=== PATIENT | male | born 1985 | race American Indian/Alaskan Native ===

== ENCOUNTER 2021-08-17 13:04 | Emergency (ER) | payer MEDICARE ==
[2021-08-17] MEDS ORDERED: METOCLOPRAMIDE 10 MG/2 ML INJ IV ONE (14:21)
[2021-08-17] MEDS ORDERED: LACTATED RINGERS 1,000 ML IV ONE (14:21)
--- NOTE | 2021-08-17 14:57 | XRay Report ---
CHEST 1 VIEW 08/17/2021 2:29 PM INDICATION / CLINICAL INFORMATION: Nausea vomiting, hematemesis. COMPARISON: None available. FINDINGS: SUPPORT DEVICES: None. HEART / MEDIASTINUM: Moderate enlargement of the cardiac silhouette with mild central vascular conges tion. LUNGS / PLEURA: There are generalized bilateral interstitial opacities, most notable along the right lung base. No significant pleural effusion. No pneumothorax. ADDITIONAL FINDINGS: No significant additional findings. IMPRESSION: 1. Moderate cardiomegaly with central vascular congestion and probable bilateral edema/atelectasis. Signer Name: Martir Bolden MD Signed: 08/17/2021 2:52 PM Workstation Name: [id number]
[2021-08-17] MEDS: diphenhydrAMINE 50 MG/ML VIAL IV ONE (15:01)
[2021-08-17] MEDS: HYDROmorphone 1 MG/1 ML INJ IV ONE ×2 (15:01→16:27)
[2021-08-17] MEDS: PANTOPRAZOLE 40 MG INJ IV ONE (15:01)
[2021-08-17] MEDS ORDERED: SPIRONOLACTONE 25 MG TAB PO ONE (15:02)
--- NOTE | 2021-08-17 15:03 | Emergency Department Report ---
ED General Adult HPI - General Chief complaint: Abdominal Pain Stated complaint: ABD PAIN Time Seen by Provider: 08/17/21 13:53 Source: patient, EMS ( EMS documentation not available at time of chart dictation ), RN notes reviewed, old records reviewed Mode of arrival: Stretcher Limitations: No Limitations - History of Present Illness Initial comments: The patient was evaluated in the emergency department for symptoms described in the history of present illness. He/she was evaluated in the context of the global COVID-19 pandemic, which necessitated consideration that the patient might be at risk for infection with the virus that causes COVID-19. Institutional protocols and algorithms that pertain to the evaluation of patients at risk for COVID-19 are in a state of rapid change based on information released by regulatory bodies including the CDC and federal and state organizations. These policies and algorithms were followed during the pat ient's care in the emergency department. Please note that these policies, procedures and recommendations changed on a rapid basis. This is a 35-year-old gentleman with a history of bipolar, sickle cell, history of cholecystectomy, currently on a 1013, with congestive heart failure, ejection fraction in 2013 at this hospital, 40 to 45%, who currently lives in [place]. He is referred to the emergency room by his local psychiatric facility where he resides as a 1013 inpatient for the moment for evaluation of diffuse abdominal pain. The patient endorses nausea, vomiting and diarrhea as well as constipation. He denies sore throat. He denies dysuria. He currently makes no complaint of homicidality or suicidality. He denies loss of taste and smell. He reports yellow-brown diarrhea, and yellow clear emesis, followed by a few rounds of bloody emesis after initial emesis. His abdominal pain is diffuse, and intermittent. He also describes diffuse sickle cell pain. Current medications include Effexor, Lasix, and spironolactone. He denies specific respiratory complaints -: Gradual, days(s) Location: back, abdomen, left, right, upper extremity, lower extremity Quality: aching Consistency: constant Improves with: medication (Dilaudid and Benadryl) Worsens with: movement - Related Data Home Medications Medication Instructions Recorded Confirmed Last Taken Benztropine [Cogentin] 1 mg PO BID 10/20/13 10/20/13 10/20/13 Folic Acid [Folvite] 1 mg PO QDAY 10/20/13 10/20/13 10/20/13 Furosemide [Lasix TAB] 20 mg PO QAM 10/20/13 10/20/13 10/20/13 Hydroxyurea [Hydrea] 500 mg PO QAM 10/20/13 10/20/13 10/20/13 Ibuprofen [Motrin 400 MG tab] 400 mg PO Q6H PRN 10/20/13 10/20/13 Unknown [place] Carbonate 300 mg PO QAM 10/20/13 10/20/13 10/19/13 [place] Carbonate 600 mg PO QHS 10/20/13 10/20/13 10/19/13 Mag Hydrox/Aluminum Hyd/Simeth 30 ml PO Q2H PRN 10/20/13 10/20/13 Unknown [Maalox Advanced Suspension] Magnesium Hydroxide [Milk of 30 ml PO Q12H PRN 10/20/13 10/20/13 Unknown Magnesia] Metoprolol [Lopressor TAB] 25 mg PO BID 10/20/13 10/20/13 10/20/13 Ondansetron [Zofran TAB] 4 mg PO Q6HR PRN 10/20/13 10/20/13 Unknown Potassium Chloride [Klor-Con 10] 20 meq PO QAM 10/20/13 10/20/13 10/20/13 QUEtiapine [SEROquel] 600 mg PO QHS 10/20/13 10/20/13 10/19/13 Ziprasidone Mesylate [Geodon] 20 mg IM Q6H PRN 10/20/13 10/20/13 Unknown chlorproMAZINE (NF) [Thorazine 100 mg PO QHS 10/20/13 10/20/13 10/19/13 (Nf)] chlorproMAZINE [Thorazine] 25 mg PO QAM 10/20/13 10/20/13 10/19/13 diphenhydrAMINE [Benadryl CAP] 50 mg PO Q4H PRN 10/20/13 10/20/13 Unknown hydrOXYzine PAMOATE [Vistaril] 25 mg PO TID 10/20/13 10/20/13 10/20/13 Previous Rx's Medication Instructions Recorded Last Taken Type diphenhydrAMINE [Benadryl CAP] 25 mg PO Q6HR PRN #30 capsule 10/24/13 Unknown Rx oxyCODONE [roxiCODONE] 5 mg PO Q6H PRN #20 tablet 10/24/13 Unknown Rx Allergies Allergy/AdvReac Type Severity Reaction Status Date / Time acetaminophen [From Tylenol] Allergy Rash Verified 10/20/13 13:04 codeine Allergy Swelling Verified 10/20/13 13:04 morphine Allergy Swelling Verified 10/20/13 13:04 tramadol Allergy Swelling Verified 10/20/13 13:04 ED Review of Systems ROS: Stated complaint: ABD PAIN Other details as noted in HPI Constitutional: denies: fever Eyes: denies: eye discharge ENT: denies: congestion Respiratory: denies: cough, shortness of breath Cardiovascular: denies: chest pain Gastrointestinal: abdominal pain, nausea, vomiting, diarrhea, constipation Genitourinary: denies: dysuria Musculoskeletal: back pain, arthralgia, myalgia Neurological: denies: weakness Psychiatric: anxiety. denies: homicidal thoughts, suicidal thoughts ED Past Medical Hx - Past Medical History Previous Medical History?: Yes Hx Hypertension: Yes Hx Heart Attack/AMI: No Hx Congestive Heart Failure: Yes Hx Diabetes: No Hx Deep Vein Thrombosis: No Hx Pulmonary Embolism: No Hx GERD: No Hx Liver Disease: No Hx Renal Disease: No Hx Sickle Cell Disease: Yes Hx Arthritis: No Hx Headaches / Migraines: Yes Hx Seizures: No Hx Kidney Stones: No Hx Psychiatric Treatment: Yes (schizoaffective disorder) Hx Asthma: No Hx COPD: No Hx Tuberculosis: No Hx Dementia: No Hx HIV: No - Surgical History Hx Coronary Stent: No Hx Open Heart Surgery: No Hx Pacemaker: No Hx Internal Defibrillator: No Hx Cholecystectomy: Yes Hx Appendectomy: No Hx Breast Surgery: No - Social History Smoking Status: Current Some Day Smoker Substance Use Type: Marijuana - Medications Home Medications: Home Medications Medication Instructions Recorded Confirmed Last Taken Type Benztropine [Cogentin] 1 mg PO BID 10/20/13 10/20/13 10/20/13 History Folic Acid [Folvite] 1 mg PO QDAY 10/20/13 10/20/13 10/20/13 History Furosemide [Lasix TAB] 20 mg PO QAM 10/20/13 10/20/13 10/20/13 History Hydroxyurea [Hydrea] 500 mg PO QAM 10/20/13 10/20/13 10/20/13 History Ibuprofen [Motrin 400 MG tab] 400 mg PO Q6H PRN 10/20/13 10/20/13 Unknown History [place] Carbonate 300 mg PO QAM 10/20/13 10/20/13 10/19/13 History [place] Carbonate 600 mg PO QHS 10/20/13 10/20/13 10/19/13 History Mag Hydrox/Aluminum Hyd/Simeth 30 ml PO Q2H PRN 10/20/13 10/20/13 Unknown Hist ory [Maalox Advanced Suspension] Magnesium Hydroxide [Milk of 30 ml PO Q12H PRN 10/20/13 10/20/13 Unknown History Magnesia] Metoprolol [Lopressor TAB] 25 mg PO BID 10/20/13 10/20/13 10/20/13 History Ondansetron [Zofran TAB] 4 mg PO Q6HR PRN 10/20/13 10/20/13 Unknown History Potassium Chloride [Klor-Con 10] 20 meq PO QAM 10/20/13 10/20/13 10/20/13 History QUEtiapine [SEROquel] 600 mg PO QHS 10/20/13 10/20/13 10/19/13 History Ziprasidone Mesylate [Geodon] 20 mg IM Q6H PRN 10/20/13 10/20/13 Unknown History chlorproMAZINE (NF) [Thorazine 100 mg PO QHS 10/20/13 10/20/13 10/19/13 History (Nf)] chlorproMAZINE [Thorazine] 25 mg PO QAM 10/20/13 10/20/13 10/19/13 History diphenhydrAMINE [Benadryl CAP] 50 mg PO Q4H PRN 10/20/13 10/20/13 Unknown History hydrOXYzine PAMOATE [Vistaril] 25 mg PO TID 10/20/13 10/20/13 10/20/13 History diphenhydrAMINE [Benadryl CAP] 25 mg PO Q6HR PRN #30 capsule 10/24/13 Unknown Rx oxyCODONE [roxiCODONE] 5 mg PO Q6H PRN #20 tablet 10/24/13 Unknown Rx ED Physical Exam - General Limitations: No Limitations General appearance: alert, anxious - Head Head exam: Present: atraumatic, normocephalic - Eye Eye exam: Present: normal appearance, EOMI. Absent: nystagmus - ENT ENT exam: Present: normal exam, normal orophraynx, mucous membranes moist, normal external ear exam - Neck Neck exam: Present: normal inspection, full ROM. Absent: tenderness, meningismus - Respiratory Respiratory exam: Present: normal lung sounds bilaterally. Absent: respiratory distress, wheezes, rales, rhonchi, stridor, decreased breath sounds - Cardiovascular Cardiovascular Exam: Present: regular rate, normal rhythm, normal heart sounds. Absent: bradycardia, tachycardia, irregular rhythm, systolic murmur, diastolic murmur, rubs, gallop - GI/Abdominal GI/Abdominal exam: Present: soft, distended, tenderness. Absent: guarding, rebound, rigid, pulsatile mass - Rectal Rectal exam: Present: deferred - Extremities Exam Extremities exam: Present: normal inspection, full ROM, other (2+ pulses noted in the bilateral upper and lower extremities. Patient reports diffuse long bony tenderness. There is no redness, pus or streaking). Absent: calf tenderness - Back Exam Back exam: Present: normal inspection, muscle spasm, paraspinal tenderness. Absent: tenderness, CVA tenderness (R), CVA tenderness (L) - Neurological Exam Neurological exam: Present: alert, oriented X3, other (No facial droop. Tongue midline. Extraocular movements intact bilaterally. Facial sensation intact to light touch in V1, V2, V3 distribution bilaterally. 5 and a 5 strength in 4 extremities. Sensation intact to light touch in 4 extremities.). Absent: motor sensory deficit - Psychiatric Psychiatric exam: Present: anxious. Absent: homicidal ideation, suicidal ideation - Skin Skin exam: Present: warm, dry, intact, normal color. Absent: rash ED Course Vital Signs 08/17/21 08/17/21 08/17/21 13:10 13:49 17:01 Temperature 98.6 F 98.6 F Pulse Rate 76 76 Respiratory 18 18 Rate Blood Pressure 130/90 Blood Pressure 130/90 [Left] O2 Sat by Pulse 99 99 Oximetry O2 Sat by Pulse 99 Oximetry [ Digit-Finger] - Reevaluation(s) Reevaluation #1: 08/17/21 15:12 Differential diagnosis, including but not limited to: Constipation, obstruction, sickle cell crisis, malingering, secondary gain Assessment and plan: 35-year-old gentleman who reports diffuse abdominal pain, nausea vomiting, diarrhea, with complaints of sickle cell pain. His examination is inconsistent. When I am not in the room and not in his field of vision, he is smiling, joking, talking quite comfortably with his psychiatric liaison/observer. When I walked into the room, he distends his belly, and states that he is very pained and uncomfortable. In addition, when I examined the patient's abdomen, he appears to flex his abdominal musculature, and anteriorly distended his abdomen. When I am not in his field of vision, this resolves. He is saturating at 99/100% on room air, and he has no acute respiratory complaints, and his lung sounds are clear. Given complaint of nausea vomiting with bloody emesis, I suspect a component of Gely-Singletary tear. We will obtain appropriate laboratory studies, x-ray of the chest, and CT scan of the abdomen pelvis. We will treat his symptoms. Reassess. Denies irritative urinary symptoms at this time 08/17/21 17:02 The patient is sleeping comfortably on stretcher. His laboratory studies appear to be at baseline. CT scan of the abdomen pelvis did not demonstrate any emergent findings. Elevated lipase, transaminitis, and chronic anemia are reviewed and appreciated, and laboratory studies appear to be grossly unchanged when compared to prior laboratory studies from 2013. He is now sleeping comfortably on the stretcher, and he is in no acute distress. He has a chronic anemia, and he is currently on hydroxyurea. The patient does not appear to have an emergent medical condition present at this time which require admission to the hospital, as his pain appears to be improved with 2 rounds of hydromorphone. He can continue his current outpatient medications, and follow-up with an outpatient hematology adult specialist for his chronic of sickle cell 08/17/21 17:04 Leukocytosis is chronic. Suspect secondary to sickle cell crisis, stress reaction or both - Pulse Oximetry Interpretation Digit-Finger Initial Pulse Oximetry Readin O2 Sat by Pulse Oximetry: 99 Actions Taken: none ED Medical Decision Making - Lab Data Result diagrams: 08/17/21 15:08 08/17/21 15:08 Vital Signs 08/17/21 08/17/21 13:10 13:49 Temperature 98.6 F 98.6 F Pulse Rate 76 76 Respiratory 18 18 Rate Blood Pressure 130/90 Blood Pressure 130/90 [Left] O2 Sat by Pulse 99 99 Oximetry - Radiology Data Radiology results: pending, report reviewed, image reviewed CHEST 1 VIEW 08/17/2021 2:29 PM INDICATION / CLINICAL INFORMATION: Nausea v omiting, hematemesis. COMPARISON: None available. FINDINGS: SUPPORT DEVICES: None. HEART / MEDIASTINUM: Moderate enlargement of the cardiac silhouette with mild central vascular congestion. LUNGS / PLEURA: There are generalized bilateral interstitial opacities, most notable along the right lung base. No significant pleural effusion. No pneumothorax. ADDITIONAL FINDINGS: No significant additional findings. IMPRESSION: 1. Moderate cardiomegaly with central vascular congestion and probable bilateral edema/atelectasis. Signer Name: Martir Bolden MD Signed: 08/17/2021 1:52 PM Workstation Name: [id number] CT ABDOMEN AND PELVIS WITH CONTRAST INDICATION / CLINICAL INFORMATION: Acute abdominal pain with nausea and vomiting. TECHNIQUE: Axial CT images were obtained through the abdomen and pelvis after 100 cc Omnipaque [address] scans at this location are performed using CT dose reduction for [place] by means of automated exposure control. COMPARISON: One view of the chest performed today. FINDINGS: LOWER CHEST: Moderate cardiomegaly is again noted. The lung bases are clear. No significant pericardial effusion. LIVER: The liver is enlarged and extends across the entire width of the abdomen. No suspicious liver lesions or other significant abnormalities. GALLBLADDER: Surgically absent. BILE DUCTS: No significant abnormality. PANCREAS: No significant abnormality. 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 ADRENALS: No significant abnormality. RIGHT KIDNEY/URETER: No significant abnormality. LEFT KIDNEY/URETER: No significant abnormality. STOMACH/SMALL BOWEL: No significant abnormality. COLON: No significant abnormality. APPENDIX: Not seen. PERITONEUM: No free fluid. No free air. No fluid collection. LYMPH NODES: No significant adenopathy. VASCULATURE: No significant abnormality. URINARY BLADDER: No significant abnormality. REPRODUCTIVE ORGANS: No significant abnormality. ADDITIONAL FINDINGS: None. BONES: No significant abnormality I MPRESSION: 1. No acute findings in the abdomen or pelvis to explain the patient's complaints. 2. Additional findings as above. Signer Name: Martir Bolden MD Signed: 08/17/2021 3:45 PM Workstation Name: [id number] Critical care attestation.: If time is entered above; I have spent that time in minutes in the direct care of this critically ill patient, excluding procedure time. ED Disposition Clinical Impression: Sickle cell crisis, Acute abdominal pain Disposition: [address] [place] [id number] Is pt being admited?: No Does the pt Need Aspirin: No Condition: Stable Additional Instructions: Patient's laboratory studies today were essentially unchanged from prior laboratory studies from 2014. CT scan of the abdomen pelvis demonstrated no acute or emergent findings. The patient is sleeping comfortably in his stretcher after 2 rounds of hydromorphone intravenously. The patient is not found to have an emergent medical condition at this time which would require admission to the hospital hospitalization. Please continue current outpatient medications. Recommend follow-up with an outpatient primary care doctor or hematology adult specialist within the next week. Do not take metformin medication for the next 2 days, if patient takes this medication. Please return to the emergency room right away with new pain, worsened pain, migration of pain, projectile vomiting, change in mental status, confusion, inability tolerate liquid feeds, new, worsened or different symptoms not present on the initial emergency room evaluation Laboratory studies demonstrated numerous chronic abnormalities, which should be followed up by an outpatient primary care doctor or hematology adult specialist. Please have your outpatient provider contact the medical records office, to obtain copies of laboratory studies and radiology studies, to follow- up on nonemergent incidental abnormal findings Referrals: ARUNA WANG MD [Staff Physician] - 3-5 Days [facility] [Provider Group] - 3-5 Days
[2021-08-17 15:35] LABS: Hemoglobin 6.6 gm/dl (11.8-15.2); Mean Corpuscular HGB Conc 33 % (32-34); Mean Corpuscular Volume 87 fl (84-94); Platelet Count 370 K/mm3 (140-440)
[2021-08-17 15:38] LABS: INR 1.18 (0.87-1.13)
[2021-08-17 15:44] LABS: Alanine Aminotransferase 101 units/L (7-56); Albumin 4.1 g/dL (3.9-5); BUN/Creatinine Ratio 23; Blood Urea Nitrogen 21 mg/dL (9-20); Calcium 9.1 mg/dL (8.4-10.2); Hemolysis Index 4
[2021-08-17] MEDS: FUROSEMIDE 20 MG/2 ML INJ IV ONE (15:54)
[2021-08-17 16:25] LABS: Bilirubin,Urine NEG (Negative); Blood,Urine NEG (Negative); Color,Urine Yellow (Yellow); Urobilinogen,Urine < 2.0 mg/dL (<2.0)
[2021-08-17 16:31] LABS: WBC,Urine < 1.0 /HPF (0.0-6.0)
--- NOTE | 2021-08-17 16:50 | Cat Scan Report ---
CT ABDOMEN AND PELVIS WITH CONTRAST INDICATION / CLINICAL INFORMATION: Acute abdominal pain with nausea and vomiting. TECHNIQUE: Axial CT images were obtained through the abdomen and pelvis after 100 cc Omnipaque [address] scans at this location are performed using CT dose reduction for [place] by means of automated exposure control. COMPARISON: One view of the chest performed today. FINDINGS: LOWER CHEST: Moderate cardiomegaly is again noted. The lung bases are clear. No significant pericardi al effusion. LIVER: The liver is enlarged and extends across the entire width of the abdomen. No suspicious liver lesions or other significant abnormalities. GALLBLADDER: Surgically absent. BILE DUCTS: No significant abnormality. PANCREAS: No significant abnormality. 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 ADRENALS: No significant abnormality. RIGHT KIDNEY/URETER: No significant abnormality. LEFT KIDNEY/URETER: No significant abnormality. STOMACH/SMALL BOWEL: No significant abnormality. COLON: No significant abnormality. APPENDIX: Not seen. PERITONEUM: No free fluid. No free air. No fluid collection. LYMPH NODES: No significant adenopathy. VASCULATURE: No significant abnormality. URINARY BLADDER: No significant abnormality. REPRODUCTIVE ORGANS: No significant abnormality. ADDITIONAL FINDINGS: None. BONES: No significant abnormality IMPRESSION: 1. No acute findings in the abdomen or pelvis to explain the patient's complaints. 2. Additional findings as above. Signer Name: Martir Bolden MD Signed: 08/17/2021 4:45 PM Workstation Name: [id number]
[2021-08-17] MEDS: SPIRONOLACTONE 50 MG TAB PO ONE (17:39)
[2021-08-17 18:07] LABS: Total Cells Counted 100
[2021-08-17 18:14] LABS: Band Neutrophils # (Manual) 0.6 K/mm3; Basophils % (Manual) 0 % (0.0-1.8); Hypochromasia 2+
[2021-08-17 18:15] LABS: Platelet Estimate Consistent w Auto; Tear Drop Cells 1+
[2021-08-18 02:44] VITALS: BP 128/84
== END 2021-08-18 02:44 ==
LOC: ED 13:04
DX: R10.9 Unspecified abdominal pain (principal); D57.00 Hb-SS disease with crisis, unspecified; I11.0 Hypertensive heart disease with heart failure; I50.9 Heart failure, unspecified; G43.909 Migraine, unspecified, not intractable, without status migrainosus; K00.2 Abnormalities of size and form of teeth; F17.200 Nicotine dependence, unspecified, uncomplicated; Z88.6 Allergy status to analgesic agent; Z91.09 Other allergy status, other than to drugs and biological substances; Z79.899 Other long term (current) drug therapy
CPT/HCPCS: 36415; 71045; 74177; 80053; 80164; 80178; 81001; 83690; 83735; 85007; 85025; 85045; 85610; 96374; 96375; 96376; 99285; C9113; J1170; J1200; J1940; Q9967; 80320; G0480

== ENCOUNTER 2021-08-26 09:23 | Inpatient (IN) | payer MEDICARE ==
--- NOTE | 2021-08-26 10:27 | XRay Report ---
CHEST 2 VIEWS INDICATION: Chest Pain. COMPARISON: 08/17/2021. FINDINGS: Support devices: None. Heart: Stable cardiomegaly. Lungs/Pleura: No acute air space or interstitial disease. No significant pleural effusion. IMPRESSION: No acute findings. Signer Name: Alton Canela MD Signed: 08/26/2021 10:23 AM Workstation Name: [email or web address]
[2021-08-26 11:14] LABS: Basophils % (Auto) 0.3 % (0.0-1.8); Eosinophils # (Auto) 0.1 K/mm3 (0.0-0.4); Eosinophils % (Auto) 0.4 % (0.0-4.3); Lymphocytes % (Auto) 25.8 % (13.4-35.0); Mean Corpuscular HGB Conc 35 % (32-34); Mean Corpuscular Volume 89 fl (84-94); Monocytes # (Auto) 0.4 K/mm3 (0.0-0.8); Monocytes % (Auto) 2.4 % (0.0-7.3); Platelet Count 329 K/mm3 (140-440); Red Blood Count 1.88 M/mm3 (3.65-5.03); Red Cell Distribution Width 18.8 % (13.2-15.2)
[2021-08-26 11:36] LABS: Alanine Aminotransferase 151 units/L (7-56); Blood Urea Nitrogen 14 mg/dL (9-20); Calcium 8.9 mg/dL (8.4-10.2); Hemolysis Index 4
[2021-08-26] MEDS ORDERED: ONDANSETRON 4 MG/2 ML INJ IV ONE (11:51)
[2021-08-26 12:11] LABS: Hemoglobin 5.8 gm/dl (11.8-15.2)
[2021-08-26 12:12] LABS: Hematocrit 16.7 % (35.5-45.6)
[2021-08-26] MEDS ORDERED: HYDROmorphone 1 MG/1 ML INJ IV ONE (12:15)
[2021-08-26 12:31] LABS: BUN/Creatinine Ratio 23
--- NOTE | 2021-08-26 13:25 | XRay Report ---
CHEST 1 VIEW 08/26/2021 12:04 PM INDICATION / CLINICAL INFORMATION: Dyspnea. COMPARISON: Earlier today. FINDINGS: SUPPORT DEVICES: None. HEART / MEDIASTINUM: Persistent cardiomegaly. There is pulmonary venous hypertension. LUNGS / PLEURA: No significant pulmonary or pleural abnormality. No pneumothorax. ADDITIONAL FINDINGS: No significant additional findings. IMPRESSION: 1. No significant change since the exam from earlier today. Signer Name: Joao Hernández MD Signed: 08/26/2021 1:20 PM Workstation Name: [id number]
[2021-08-26 13:40] LABS: Amphetamine Screen,Urine Negative; Benzodiazepines Screen,Urine Negative; Cannabinoid Screen,Urine Negative; Cocaine Screen,Urine Negative; Methadone Screen,Urine Negative; Opiate Screen,Urine Negative
[2021-08-26 14:10] LABS: WBC,Urine < 1.0 /HPF (0.0-6.0)
[2021-08-26 14:27] LABS: Bilirubin,Urine Negative (Negative); Blood,Urine Negative (Negative); Color,Urine Yellow (Yellow)
[2021-08-26 14:28] LABS: Protein,Urine <15 mg/dL mg/dL (Negative); RBC,Urine < 1.0 /HPF (0.0-6.0)
[2021-08-26] MEDS ORDERED: KETOROLAC 30 MG/1 ML INJ IV ONE (14:35)
[2021-08-26] MEDS ORDERED: fentaNYL 100 MCG/2 ML INJ IV ONE (14:57)
--- NOTE | 2021-08-26 15:15 | Emergency Department Report ---
ED General Adult HPI - General Chief complaint: Pain General Stated complaint: SICKLE CELL PUI?: No Time Seen by Provider: 08/26/21 11:19 Source: patient Mode of arrival: Ambulatory Limitations: No Limitations - History of Present Illness Initial comments: Pt reports severe back pain x1 hour. Pt reports hx of sickle cell and states he is having a sickle cell crisis. Pt reports severe abd pain and distention with progressive worsening. pt reports hx of cirrhosis of the liver. abd is round and hard. -: Gradual, week(s) Location: back, abdomen Radiation: back Severity scale (0 -10): 9 Quality: aching Consistency: constant Improves with: none Associated Symptoms: denies: denies other symptoms, confusion, chest pain, cough, diaphoresis Treatments Prior to Arrival: none - Related Data Home Medications Medication Instructions Recorded Confirmed Last Taken Benztropine [Cogentin] 1 mg PO BID 10/20/13 10/20/13 10/20/13 Folic Acid [Folvite] 1 mg PO QDAY 10/20/13 10/20/13 10/20/13 Furosemide [Lasix TAB] 20 mg PO QAM 10/20/13 10/20/13 10/20/13 Hydroxyurea [Hydrea] 500 mg PO QAM 10/20/13 10/20/13 10/20/13 Ibuprofen [Motrin 400 MG tab] 400 mg PO Q6H PRN 10/20/13 10/20/13 Unknown [place] Carbonate 300 mg PO QAM 10/20/13 10/20/13 10/19/13 [place] Carbonate 600 mg PO QHS 10/20/13 10/20/13 10/19/13 Mag Hydrox/Aluminum Hyd/Simeth 30 ml PO Q2H PRN 10/20/13 10/20/13 Unknown [Maalox Advanced Suspension] Magnesium Hydroxide [Milk of 30 ml PO Q12H PRN 10/20/13 10/20/13 Unknown Magnesia] Metoprolol [Lopressor TAB] 25 mg PO BID 10/20/13 10/20/13 10/20/13 Ondansetron [Zofran TAB] 4 mg PO Q6HR PRN 10/20/13 10/20/13 Unknown Potassium Chloride [Klor-Con 10] 20 meq PO QAM 10/20/13 10/20/13 10/20/13 QUEtiapine [SEROquel] 600 mg PO QHS 10/20/13 10/20/13 10/19/13 Ziprasidone Mesylate [Geodon] 20 mg IM Q6H PRN 10/20/13 10/20/13 Unknown chlorproMAZINE (NF) [Thorazine 100 mg PO QHS 10/20/13 10/20/13 10/19/13 (Nf)] chlorproMAZINE [Thorazine] 25 mg PO QAM 10/20/13 10/20/13 10/19/13 diphenhydrAMINE [Benadryl CAP] 50 mg PO Q4H PRN 10/20/13 10/20/13 Unknown hydrOXYzine PAMOATE [Vistaril] 25 mg PO TID 10/20/13 10/20/13 10/20/13 Previous Rx's Medication Instructions Recorded Last Taken Type diphenhydrAMINE [Benadryl CAP] 25 mg PO Q6HR PRN #30 capsule 10/24/13 Unknown Rx oxyCODONE [roxiCODONE] 5 mg PO Q6H PRN #20 tablet 10/24/13 Unknown Rx Allergies Allergy/AdvReac Type Severity Reaction Status Date / Time acetaminophen [From Tylenol] Allergy Rash Verified 10/20/13 13:04 codeine Allergy Swelling Verified 10/20/13 13:04 ketorolac [From Toradol] Allergy Swelling Verified 08/26/21 14:53 morphine Allergy Swelling Verified 10/20/13 13:04 promethazine [From Phenergan] Allergy Rash Verified 08/26/21 10:15 tramadol Allergy Swelling Verified 10/20/13 13:04 ED Review of Systems ROS: Stated complaint: SICKLE CELL Other details as noted in HPI Constitutional: denies: chills, fever Eyes: denies: eye pain, eye discharge, vision change ENT: denies: ear pain, throat pain Respiratory: denies: cough, shortness of breath, wheezing Cardiovascular: denies: chest pain, palpitations Endocrine: no symptoms reported Gastrointestinal: denies: abdominal pain, nausea, diarrhea Genitourinary: denies: urgency, dysuria Musculoskeletal: denies: back pain, joint swelling, arthralgia Skin: denies: rash, lesions Neurological: denies: headache, weakness, paresthesias Psychiatric: denies: anxiety, depression Hematological/Lymphatic: denies: easy bleeding, easy bruising ED Past Medical Hx - Past Medical History Hx Hypertension: Yes Hx Heart Attack/AMI: No Hx Congestive Heart Failure: Yes Hx Diabetes: No Hx Deep Vein Thrombosis: No Hx Pulmonary Embolism: No Hx GERD: No Hx Liver Disease: No Hx Renal Disease: No Hx Sickle Cell Disease: Yes Hx Arthritis: No Hx Headaches / Migraines: Yes Hx Seizures: No Hx Kidney Stones: No Hx Psychiatric Treatment: Yes (schizoaffective disorder) Hx Asthma: No Hx COPD: No Hx Tuberculosis: No Hx Dementia: No Hx HIV: No - Surgical History Hx Coronary Stent: No Hx Open Heart Surgery: No Hx Pacemaker: No Hx Internal Defibrillator: No Hx Cholecystectomy: Yes Hx Appendectomy: No Hx Breast Surgery: No - Social History Smoking Status: Never Smoker Substance Use Type: None - Medications Home Medications: Home Medications Medication Instructions Recorded Confirmed Last Taken Type Benztropine [Cogentin] 1 mg PO BID 10/20/13 10/20/13 10/20/13 History Folic Acid [Folvite] 1 mg PO QDAY 10/20/13 10/20/13 10/20/13 History Furosemide [Lasix TAB] 20 mg PO QAM 10/20/13 10/20/13 10/20/13 History Hydroxyurea [Hydrea] 500 mg PO QAM 10/20/13 10/20/13 10/20/13 History Ibuprofen [Motrin 400 MG tab] 400 mg PO Q6H PRN 10/20/13 10/20/13 Unknown History [place] Carbonate 300 mg PO QAM 10/20/13 10/20/13 10/19/13 History [place] Carbonate 600 mg PO QHS 10/20/13 10/20/13 10/19/13 History Mag Hydrox/Aluminum Hyd/Simeth 30 ml PO Q2H PRN 10/20/13 10/20/13 Unknown History [Maalox Advanced Suspension] Magnesium Hydroxide [Milk of 30 ml PO Q12H PRN 10/20/13 10/20/13 Unknown History Magnesia] Metoprolol [Lopressor TAB] 25 mg PO BID 10/20/13 10/20/13 10/20/13 History Ondansetron [Zofran TAB] 4 mg PO Q6HR PRN 10/20/13 10/20/13 Unknown History Potassium Chloride [Klor-Con 10] 20 meq PO QAM 10/20/13 10/20/13 10/20/13 History QUEtiapine [SEROquel] 600 mg PO QHS 10/20/13 10/20/13 10/19/13 History Ziprasidone Mesylate [Geodon] 20 mg IM Q6H PRN 10/20/13 10/20/13 Unknown History chlorproMAZINE (NF) [Thorazine 100 mg PO QHS 10/20/13 10/20/13 10/19/13 History (Nf)] chlorproMAZINE [Thorazine] 25 mg PO QAM 10/20/13 10/20/13 10/19/13 History diphenhydrAMINE [Benadryl CAP] 50 mg PO Q4H PRN 10/20/13 10/20/13 Unknown History hydrOXYzine PAMOATE [Vistaril] 25 mg PO TID 10/20/13 10/20/13 10/20/13 History diphenhydrAMINE [Benadryl CAP] 25 mg PO Q6HR PRN #30 capsule 10/24/13 Unknown Rx oxyCODONE [roxiCODONE] 5 mg PO Q6H PRN #20 tablet 10/24/13 Unknown Rx ED Physical Exam - General Limitations: No Limitations General appearance: alert, cachectic - Head Head exam: Present: atraumatic, normocephalic - Eye Eye exam: Present: normal appearance - ENT ENT exam: Present: mucous membranes moist - Neck Neck exam: Present: normal inspection - Respiratory Respiratory exam: Present: normal lung sounds bilaterally. Absent: respiratory distress - Cardiovascular Cardiovascular Exam: Present: normal rhythm, tachycardia, systolic murmur. Absent: diastolic murmur, rubs, gallop - GI/Abdominal GI/Abdominal exam: Present: distended, normal bowel sounds, other (tense ascites ) - Rectal Rectal exam: Present: deferred - Extremities Exam Extremities exam: Present: normal inspection - Back Exam Back exam: Present: normal inspection - Neurological Exam Neurological exam: Present: alert, oriented X3 - Psychiatric Psychiatric exam: Present: normal affect, normal mood - Skin Skin exam: Present: warm, dry, intact, normal color. Absent: rash ED Course Vital Signs 08/26/21 08/26/21 08/26/21 09:26 10:11 10:15 Temperature 98.9 F 98.3 F Pulse Rate 97 H 96 H 96 H Respiratory 14 16 21 Rate Blood Pressure 117/64 Blood Pressure 114/79 [Right] O2 Sat by Pulse 98 99 99 Oximetry 08/26/21 08/26/21 08/26/21 10:31 10:45 11:01 Temperature Pulse Rate 96 H 95 H 95 H Respiratory 18 16 21 Rate Blood Pressure 116/65 113/72 101/46 Blood Pressure [Right] O2 Sat by Pulse 100 100 98 Oximetry 08/26/21 08/26/21 08/26/21 11:15 11:31 11:45 Temperature Pulse Rate 97 H 90 93 H Respiratory 21 19 18 Rate Blood Pressure 85/52 85/52 85/52 Blood Pressure [Right] O2 Sat by Pulse 98 Oximetry 08/26/21 08/26/21 08/26/21 12:01 12:15 12:31 Temperature Pulse Rate 82 86 83 Respiratory 20 18 15 Rate Blood Pressure 85/52 103/51 115/62 Blood Pressure [Right] O2 Sat by Pulse 100 100 98 Oximetry 08/26/21 08/26/21 08/26/21 12:45 13:01 13:15 Temperature Pulse Rate 87 90 90 Respiratory 18 17 18 Rate Blood Pressure 115/62 119/61 119/61 Blood Pressure [Right] O2 Sat by Pulse 99 97 99 Oximetry 08/26/21 08/26/21 13:31 13:45 Temperature Pulse Rate 82 88 Respiratory 17 16 Rate Blood Pressure 110/56 110/56 Blood Pressure [Right] O2 Sat by Pulse 97 100 Oximetry ED Medical Decision Making - Lab Data Result diagrams: 08/26/21 10:47 08/26/21 10:47 - Radiology Data Radiology results: report reviewed, image reviewed - Medical Decision Making work up vaughn cordero, will start tranfusion pain meds given fluids Critical care attestation.: If time is entered above; I have spent that time in minutes in the direct care of this critically ill patient, excluding procedure time. ED Disposition Clinical Impression: Sickle cell crisis, Anemia, Chronic systolic CHF (congestive heart failure), Cirrhosis, Tense ascites Disposition: 09 ADMITTED INPATIENT Is pt being admited?: Yes Does the pt Need Aspirin: No Condition: Stable
--- NOTE | 2021-08-26 16:11 | History and Physical Report ---
History of Present Illness Chief complaint: I am having a crisis History of present illness: 35 YO Male with NUHA, SCD, HTN, Nicotine Dependence, CHF, Migraine NGUYEN, Schizoaffective Disorder, Chronic Pain Syndrome presents to ED for evaluation. Patient reports "I am having a crisis". Patient states that he has experienced pain all over his body over the past 1 day with persistent symptoms over the same timeframe. Patient states the pain is 9/10, constant, without exacerbating or alleviating factors. Patient transported to [facility] via private vehicle for further care and evaluation of the aforementioned symptoms. The patient was seen and evaluated emergency department. All lab and imaging studies reviewed. Patient found to have clinical symptoms consistent with sickle cell disease crisis. However patient does appear to complain of symptoms of pain out of proportion to exam and interview. Patient treated with IV fluid resuscitation therapy and pain control. Patient denies fever, chills, palpitation, productive cough, recent contact, skin rash, known exposure to COVID-19. No prior admission for review. All medication listed at time of admission has been reconciled. Advanced care planning conducted in ED. CT scan abdomen pelvis ordered and is pending at time of admission. Past History Past Medical History: hypertension, migraines, other (See HPI) Past Surgical History: cholecystectomy Social history: single. denies: smoking, alcohol abuse, prescription drug abuse Family history: hypertension Medications and Allergies Allergies Allergy/AdvReac Type Severity Reaction Status Date / Time acetaminophen [From Tylenol] Allergy Rash Verified 10/20/13 13:04 codeine Allergy Swelling Verified 10/20/13 13:04 ketorolac [From Toradol] Allergy Swelling Verified 08/26/21 14:53 morphine Allergy Swelling Verified 10/20/13 13:04 promethazine [From Phenergan] Allergy Rash Verified 08/26/21 10:15 tramadol Allergy Swelling Verified 10/20/13 13:04 Home Medications Medication Instructions Recorded Confirmed Last Taken Type Benztropine [Cogentin] 1 mg PO BID 10/20/13 10/20/13 10/20/13 History Folic Acid [Folvite] 1 mg PO QDAY 10/20/13 10/20/13 10/20/13 History Furosemide [Lasix TAB] 20 mg PO QAM 10/20/13 10/20/13 10/20/13 History Hydroxyurea [Hydrea] 500 mg PO QAM 10/20/13 10/20/13 10/20/13 History Ibuprofen [Motrin 400 MG tab] 400 mg PO Q6H PRN 10/20/13 10/20/13 Unknown History [place] Carbonate 300 mg PO QAM 10/20/13 10/20/13 10/19/13 History [place] Carbonate 600 mg PO QHS 10/20/13 10/20/13 10/19/13 History Mag Hydrox/Aluminum Hyd/Simeth 30 ml PO Q2H PRN 10/20/13 10/20/13 Unknown History [Maalox Advanced Suspension] Magnesium Hydroxide [Milk of 30 ml PO Q12H PRN 10/20/13 10/20/13 Unknown History Magnesia] Metoprolol [Lopressor TAB] 25 mg PO BID 10/20/13 10/20/13 10/20/13 History Ondansetron [Zofran TAB] 4 mg PO Q6HR PRN 10/20/13 10/20/13 Unknown History Potassium Chloride [Klor-Con 10] 20 meq PO QAM 10/20/13 10/20/13 10/20/13 Hist ory QUEtiapine [SEROquel] 600 mg PO QHS 10/20/13 10/20/13 10/19/13 History Ziprasidone Mesylate [Geodon] 20 mg IM Q6H PRN 10/20/13 10/20/13 Unknown History chlorproMAZINE (NF) [Thorazine 100 mg PO QHS 10/20/13 10/20/13 10/19/13 History (Nf)] chlorproMAZINE [Thorazine] 25 mg PO QAM 10/20/13 10/20/13 10/19/13 History diphenhydrAMINE [Benadryl CAP] 50 mg PO Q4H PRN 10/20/13 10/20/13 Unknown History hydrOXYzine PAMOATE [Vistaril] 25 mg PO TID 10/20/13 10/20/13 10/20/13 History diphenhydrAMINE [Benadryl CAP] 25 mg PO Q6HR PRN #30 capsule 10/24/13 Unknown Rx oxyCODONE [roxiCODONE] 5 mg PO Q6H PRN #20 tablet 10/24/13 Unknown Rx Review of Systems Constitutional: no weight loss, no weight gain, no fever, no chills Ears, nose, mouth and throat: no ear pain, no tinnitis, no decreased hearing, no nose pain Cardiovascular: no chest pain, no orthopnea, no palpitations Respiratory: no cough, no excessive sputum, no hemoptysis Gastrointestinal: no nausea, no vomiting, no diarrhea, no constipation Genitourinary Male: no hematuria, no flank pain, no discharge, no urinary frequency, no urinary hesitancy Rectal: no incontinence, no bleeding Musculoskeletal: no neck stiffness, no arm numbness/tingling, no shooting leg pain, no leg numbness/tingling, no redness of joints Integumentary: no rash, no pruritis, no sores, no wounds Neurological: no transient paralysis, no paralysis, no weakness, no parathesias, no syncope Psychiatric: no anxiety, no memory loss, no sleep disturbances, no hypersomnia Endocrine: no cold intolerance, no polyphagia, no excessive thirst, no polyuria, no nocturia Hematologic/Lymphatic: no easy bruising Allergic/Immunologic: no urticaria, no allergic rhinitis, no wheezing Exam - Constitutional Vitals: Temp Pulse Resp BP Pulse Ox 98.3 F 88 16 110/56 100 08/26/21 10:11 08/26/21 13:45 08/26/21 13:45 08/26/21 13:45 08/26/21 13:45 General appearance: Present: mild distress, cachectic - EENT Eyes: Present: PERRL ENT: hearing intact, clear oral mucosa - Neck Neck: Present: supple, normal ROM - Respiratory Respiratory effort: normal Respiratory: bilateral: CTA - Cardiovascular Heart Sounds: Present: S1 & S2. Absent: rub, click - Extremities Extremities: pulses symmetrical, No edema Peripheral Pulses: within normal limits - Abdominal General gastrointestinal: Present: soft, non-tender, non-distended, normal bowel sounds Male genitourinary: Present: normal - Integumentary Integumentary: Present: clear, warm, dry - Musculoskeletal Musculoskeletal: gait normal, strength equal bilaterally - Psychiatric Psychiatric: appropriate mood/affect, intact judgment & insight - Neurologic Neurologic: CNII-XII intact, moves all extremities HEART Score - HEART Score Troponin: Troponin T < 0.010 ng/mL (0.00-0.029) 08/26/21 14:43 Results - Labs CBC & Chem 7: 08/26/21 10:47 08/26/21 10:47 Labs: Abnormal lab results 08/26/21 08/26/21 08/26/21 Range/Units 10:47 10:47 12:16 WBC 15.5 H (4.5-11.0) K/mm3 RBC 1.88 L (3.65-5.03) M/mm3 Hgb 5.8 L* (11.8-15.2) gm/dl Hct 16.7 L* (35.5-45.6) % MCHC 35 H (32-34) % RDW 18.8 H (13.2-15.2) % Seg Neutrophils % 71.1 H (40.0-70.0) % Seg Neutrophils # 11.0 H (1.8-7.7) K/mm3 Percent Retic 8.67 H (0.78-2.58) % Chloride 107.7 H (98-107) mmol/L Creatinine 0.6 L (0.8-1.3) mg/dL Glucose 110 H (75-100) mg/dL Total Bilirubin 1.70 H (0.1-1.2) mg/dL AST 157 H (5-40) units/L ALT 151 H (7-56) units/L Alkaline Phosphatase 150 H (35-129) units/L Total Creatine Kinase 25 L (55-170) units/L Assessment and Plan - Patient Problems (1) Sickle cell disease with crisis Current Visit: Yes Status: Acute Plan to address problem: Sickle cell disease protocol: IV fluid resuscitation therapy, reticulocyte count , thiamine, folic acid, hydroxyurea, outpatient follow-up with hematology service., Pain control. (2) SIRS (systemic inflammatory response syndrome) Current Visit: Yes Status: Acute Plan to address problem: CBC, CMP, chest x-ray, urinalysis, empiric IV antibiotic therapy x1 dose. Repeat CBC in AM. (3) Hypotension Current Visit: Yes Status: Acute Qualifiers: Hypotension type: unspecified hypotension type Qualified Code(s): I95.9 - Hypotension, unspecified Plan to address problem: IV fluid resuscitation therapy, supportive care. Vital signs as per nursing care protocol. (4) Nicotine dependence Current Visit: Yes Status: Acute Qualifiers: Nicotine product type: cigarettes Substance use status: in withdrawal Qualified Code(s): F17.213 - Nicotine dependence, cigarettes, with withdrawal Plan to address problem: Smoke cessation counseled, supportive care, behavior change counseling, +15 minutes. (5) Schizoaffective disorder Current Visit: Yes Status: Acute Qualifiers: Schizoaffective disorder type: unspecified Qualified Code(s): F25.9 - Schizoaffective disorder, unspecified Plan to address problem: No acute exacerbation at this time, outpatient mental health follow-up. (6) Generalized anxiety disorder Current Visit: Yes Status: Acute Plan to address problem: Benzodiazepine therapy as clinical indicated, supportive care, continue medical management. (7) Diastolic CHF Current Visit: Yes Status: Acute Qualifiers: Heart failure chronicity: chronic Qualified Code(s): I50.32 - Chronic diastolic (congestive) heart failure Plan to address problem: Continue medical management, strict I's/O, monitor urine output every shift, blood pressure control, diuresis with Lasix. No acute exacerbation at this time. (8) DVT prophylaxis Current Visit: Yes Status: Acute Plan to address problem: SCD to bilateral lower extremities while in bed (9) Advance care planning Current Visit: Yes Status: Acute Plan to address problem: Disease education data, care plan discussed, diagnoses discussed, prognosis discussed, patient acknowledges understanding agreement with care plan, +30 minutes. (10) Preventative health care Current Visit: Yes Status: Acute Plan to address problem: Patient counseled regarding medication compliance, adequate hydration, risk factor reduction. Patient instructed to follow-up with primary care physician for all age and risk factor appropriate screening test. Patient instructed to follow-up with hematology as outpatient. +30 minutes.
[2021-08-26] MEDS ORDERED: SODIUM CHLORIDE 0.9% 1000 ML 1,000 ML IV ONE (16:12)
[2021-08-26] MEDS ORDERED: ALBUTEROL 2.5 MG/3 ML NEBU IH PRN (16:13)
[2021-08-26] MEDS ORDERED: ONDANSETRON 4 MG/2 ML INJ IV PRN (16:13)
[2021-08-26] MEDS ORDERED: HYDROmorphone 0.5 MG/0.5 ML INJ IV PRN (16:13)
[2021-08-26] MEDS ORDERED: ACETAMINOPHEN 325 MG TAB PO PRN (16:13)
[2021-08-26] MEDS: HYDROmorphone 0.5 MG/0.5 ML INJ IV PRN (18:27)
[2021-08-26] MEDS ORDERED: diphenhydrAMINE 50 MG/ML VIAL IV SCH (18:44)
[2021-08-26] MEDS ORDERED: MAGNESIUM HYDROXIDE (MOM) ORAL LIQD UDC PO PRN (18:46)
[2021-08-26] MEDS ORDERED: ALUM-MAG HYDROXIDE-SIMETHICONE 200-200-20MG/5ML ORAL LIQD 30 ML PO PRN (18:46)
[2021-08-26] MEDS ORDERED: ZIPRASIDONE MESYLATE 20 MG VIAL IM PRN (18:46)
[2021-08-26] MEDS ORDERED: diphenhydrAMINE 25 MG CAP PO PRN (18:46)
[2021-08-26] MEDS: SODIUM CHLORIDE 0.9% 1000 ML 1,000 ML IV SCH (18:46)
--- NOTE | 2021-08-26 19:01 | Electrocardiograph Report ---
[facility] Test Date: 2021-08-26 Test Time: 10:26:36 Pat Name: WILLEM LOJA Department: Room: A387 Gender: M Neon Molder: KALPANA : 1985 Requested By: RAMY MORALES Order Number: [id number] Reading MD: Alda Cervantes Measurements Intervals Mar Lin Rate: 92 P: 55 VA: 164 QRS: 57 QRSD: 102 T: 1 QT: 320 QTc: 396 Interpretive Statements Sinus rhythm Probable left ventricle hypertrophy No previous ECG available for comparison Electronically Signed On 08-26-2021 19:00:42 EDT by Alda Cervantes
[2021-08-26] MEDS ORDERED: cefTRIAXone/NS 1 GM/50 ML 1 GM/50 ML BAG IV ONE (20:00)
[2021-08-26] MEDS ORDERED: SODIUM CHLORIDE 0.9% 1000 ML 3,000 ML IV ONE (20:00)
--- NOTE | 2021-08-26 21:11 | Cat Scan Report ---
CT ABDOMEN AND PELVIS WITHOUT CONTRAST INDICATION / CLINICAL INFORMATION: Unspecified abdominal pain. Abdominal distention. TECHNIQUE: Axial CT images were obtained through the abdomen and pelvis without IV contrast. All CT scans at [facility] location are performed using CT dose reduction for ALARA by means of automated exposure control. COMPARISON: CT abdomen and pelvis with contrast from 08/17/2021. FINDINGS: LOWER CHEST: Similar moderate cardiomegaly. No new significant abnormality. LIVER: Similarly enlarged. No new significant abnormality. GALLBLADDER: Surgically absent. BILE DUCTS: No significant abnormality. PANCREAS: No significant abnormality. SPLEEN: Similar changes of autoinfarction. ADRENALS: No significant abnormality. RIGHT KIDNEY/URETER: No significant abnormality. LEFT KIDNEY/URETER: No significant abnormality. STOMACH/SMALL BOWEL: No significant abnormality. COLON: No significant abnormality. APPENDIX: Not seen. PERITONEUM: No free fluid. No free air. No fluid collection. LYMPH NODES: No significant adenopathy. VASCULATURE: No significant abnormality. URINARY BLADDER: No significant abnormality. REPRODUCTIVE ORGANS: No significant abnormality. ADDITIONAL FINDINGS: None. BONES: No significant abnormality IMPRESSION: 1. No acute findings to explain the patient's pain or abdominal distention. 2. Additional findings as above are unchanged from the CT performed on 08/17/2021. Signer Name: Martir Bolden MD Signed: 08/26/2021 9:07 PM Workstation Name: [id number]
[2021-08-26] MEDS: BENZTROPINE 1 MG TAB PO SCH (21:24)
[2021-08-26] MEDS: LITHIUM CARBONATE 300 MG CAP PO SCH (21:25)
[2021-08-26] MEDS: QUEtiapine 200 MG TAB PO SCH (21:26)
[2021-08-26] MEDS: METOPROLOL TARTRATE 25 MG TAB PO SCH (21:27)
[2021-08-26] MEDS: oxyCODONE /ACETAMINOPHEN 5-325MG TAB PO PRN (21:33)
[2021-08-26] MEDS ORDERED: NON-FORMULARY EACH (Lithium Carbonate [Lithium Carbonate] 300 MG Tablet) PO SCH (22:00)
[2021-08-26] MEDS: hydrOXYzine PAMOATE 25 MG CAP PO SCH (23:48)
[2021-08-27] MEDS: oxyCODONE /ACETAMINOPHEN 5-325MG TAB PO PRN (05:11)
[2021-08-27 05:50] LABS: BUN/Creatinine Ratio 24; Blood Urea Nitrogen 12 mg/dL (9-20); Calcium 8.6 mg/dL (8.4-10.2); Hemolysis Index 1
[2021-08-27] MEDS ORDERED: SODIUM CHLORIDE 0.9% 250ML 250 ML ONE (06:14)
[2021-08-27] MEDS: HYDROmorphone 0.5 MG/0.5 ML INJ IV PRN (09:00)
[2021-08-27] MEDS: BENZTROPINE 1 MG TAB PO SCH ×2 (09:43→21:06)
[2021-08-27] MEDS: LITHIUM CARBONATE 300 MG CAP PO SCH ×2 (09:43→21:06)
[2021-08-27] MEDS: POTASSIUM CHLORIDE ER 20 MEQ TAB PO SCH (09:44)
[2021-08-27] MEDS: FUROSEMIDE 20 MG TAB PO SCH (09:44)
[2021-08-27] MEDS: HYDROXYUREA 500 MG CAP PO SCH (09:44)
[2021-08-27] MEDS: METOPROLOL TARTRATE 25 MG TAB PO SCH ×2 (09:44→21:04)
[2021-08-27] MEDS: FOLIC ACID 1 MG TAB PO SCH (09:44)
[2021-08-27] MEDS: diphenhydrAMINE 50 MG/ML VIAL IV PRN ×2 (09:45→17:29)
[2021-08-27] MEDS ORDERED: NON-FORMULARY EACH (Potassium Chloride [Klor-Con 10] 10 MEQ Tablet.Er) PO SCH (10:00)
[2021-08-27] MEDS ORDERED: NON-FORMULARY EACH (Lithium Carbonate [Lithium Carbonate] 300 MG Tablet) PO SCH (10:00)
[2021-08-27] MEDS ORDERED: HYDROmorphone 0.5 MG/0.5 ML INJ IV PRN (10:00)
--- NOTE | 2021-08-27 10:18 | Progress Note ---
Assessment and Plan Assessment and plan: -- Sickle cell disease with crisis Sickle cell disease protocol: IV fluid resuscitation therapy, reticulocyte count, thiamine, folic acid, hydroxyurea, outpatient follow-up with hematology se rvice., Pain control. --Severe sickle cell anemia; Patient received 1 unit in the ER Second unit running Will monitor H&H and transfuse additional PRBC as needed - SIRS (systemic inflammatory response syndrome) Closely monitor, evaluate and rule out any sepsis --Hypotension Mild improvement closely monitor blood pressures, adjust medications, Consider midodrine --History of cirrhosis liver with ascites; Patient follows with [facility], for liver transplantation evaluation - Nicotine dependence Smoking cessation counseling done spent 15 minutes Nicotine patch as needed -- Schizoaffective disorder No acute exacerbation at this time, outpatient psychiatric follow-up -- Generalized anxiety disorder Benzodiazepine therapy as clinical indicated, supportive care, continue medical management. -- Diastolic CHF Continue medical management, strict I's/O, monitor urine output every shift blood pressure control, diuresis with Lasix. No acute exacerbation at this time. -- DVT prophylaxis SCD to bilateral lower extremities while in bed -- Advance care planning Disease education data, care plan discussed, diagnoses discussed, prognosis discussed, patient acknowledges understanding agreement with care plan, +30 minutes. --Preventative health care Patient counseled regarding medication compliance, adequate hydration, risk factor reduction. Patient instructed to follow-up with primary care physician for all age and risk factor appropriate screening test. Patient instructed to follow-up with hematology as outpatient. +30 minutes. Closely monitor the patient and adjust management as needed Plan of care reviewed with the patient and his nurse Discharge planning per case management History Interval history: I have seen and examined the patient at the bedside this morning Patient's chart and medications reviewed Patient with sickle cell disease and cirrhosis liver with ascites Was admitted through the emergency room with sickle cell crisis and severe anemia Received 1 unit of PRBC, second unit running Patient complains of generalized body pains Vital signs noted Hospitalist Physical - Constitutional Vitals: Temp Pulse Resp BP Pulse Ox 98.4 F 83 18 111/60 98 08/27/21 06:20 08/27/21 07:08 08/27/21 07:08 08/27/21 07:08 08/27/21 09:01 General appearance: Present: mild distress, cachectic - EENT Eyes: Present: PERRL, EOM intact - Neck Neck: Present: supple, normal ROM - Respiratory Respiratory effort: normal Respiratory: bilateral: diminished, negative: rales, rhonchi, wheezing - Cardiovascular Rhythm: regular Heart Sounds: Present: S1 & S2 - Extremities Extremities: no ischemia, No edema - Abdominal General gastrointestinal: soft, non-tender, distended, normal bowel sounds, other (Ascites) - Integumentary Integumentary: Present: clear, warm - Psychiatric Psychiatric: appropriate mood/affect, cooperative - Neurologic Neurologic: CNII-XII intact, moves all extremities HEART Score - HEART Score Troponin: Troponin T < 0.010 ng/mL (0.00-0.029) 08/26/21 14:43 Results - Labs CBC & Chem 7: 08/26/21 10:47 08/27/21 04:55 Labs: Laboratory Last Values WBC 15.5 K/mm3 (4.5-11.0) H 08/26/21 10:47 RBC 1.88 M/mm3 (3.65-5.03) L 08/26/21 10:47 Hgb 5.8 gm/dl (11.8-15.2) L* 08/26/21 10:47 Hct 16.7 % (35.5-45.6) L* 08/26/21 10:47 MCV 89 fl (84-94) 08/26/21 10:47 MCH 31 pg (28-32) 08/26/21 10:47 MCHC 35 % (32-34) H 08/26/21 10:47 RDW 18.8 % (13.2-15.2) H 08/26/21 10:47 Plt Count 329 K/mm3 (140-440) 08/26/21 10:47 Lymph % (Auto) 25.8 % (13.4-35.0) 08/26/21 10:47 [place] % (Auto) 2.4 % (0.0-7.3) 08/26/21 10:47 Eos % (Auto) 0.4 % (0.0-4.3) 08/26/21 10:47 Baso % (Auto) 0.3 % (0.0-1.8) 08/26/21 10:47 Lymph # (Auto) 4.0 K/mm3 (1.2-5.4) 08/26/21 10:47 [place] # (Auto) 0.4 K/mm3 (0.0-0.8) 08/26/21 10:47 Eos # (Auto) 0.1 K/mm3 (0.0-0.4) 08/26/21 10:47 Baso # (Auto) 0.0 K/mm3 (0.0-0.1) 08/26/21 10:47 Seg Neutrophils % 71.1 % (40.0-70.0) H 08/26/21 10:47 Seg Neutrophils # 11.0 K/mm3 (1.8-7.7) H 08/26/21 10:47 Percent Retic 8.67 % (0.78-2.58) H 08/26/21 10:47 Sodium 139 mmol/L (137-145) 08/27/21 04:55 Potassium 4.8 mmol/L (3.6-5.0) 08/27/21 04:55 Chloride 107.4 mmol/L (98-107) H 08/27/21 04:55 Carbon Dioxide 23 mmol/L (22-30) 08/27/21 04:55 Anion Gap 13 mmol/L 08/27/21 04:55 BUN 12 mg/dL (9-20) 08/27/21 04:55 Creatinine 0.5 mg/dL (0.8-1.3) L 08/27/21 04:55 Estimated GFR > 60 ml/min 08/27/21 04:55 BUN/Creatinine Ratio 24 % 08/27/21 04:55 Glucose 88 mg/dL (75-100) 08/27/21 04:55 Calcium 8.6 mg/dL (8.4-10.2) 08/27/21 04:55 Total Bilirubin 1.70 mg/dL (0.1-1.2) H 08/26/21 10:47 AST 157 units/L (5-40) H 08/26/21 10:47 ALT 151 units/L (7-56) H 08/26/21 10:47 Alkaline Phosphatase 150 units/L (35-129) H 08/26/21 10:47 Total Creatine Kinase 25 units/L (55-170) L 08/26/21 12:16 Troponin T < 0.010 ng/mL (0.00-0.029) 08/26/21 14:43 NT-Pro-B Natriuret Pep 172.9 pg/mL (0-450) 08/26/21 12:16 Total Protein 7.0 g/dL (6.3-8.2) 08/26/21 10:47 Albumin 4.0 g/dL (3.9-5) 08/26/21 10:47 Albumin/Globulin Ratio 1.3 % 08/26/21 10:47 Urine Color Yellow (Yellow) 08/26/21 12:16 Urine Turbidity Clear (Clear) 08/26/21 12:16 Urine pH 5.0 (5.0-7.0) 08/26/21 12:16 Ur Specific [place] 1.015 (1.003-1.030) 08/26/21 12:16 Urine Protein <15 mg/dl mg/dL (Negative) 08/26/21 12:16 Urine Glucose (UA) Negative mg/dL (Negative) 08/26/21 12:16 Urine Ketones Negative mg/dL (Negative) 08/26/21 12:16 Urine Blood Negative (Negative) 08/26/21 12:16 Urine Nitrite Negative (Negative) 08/26/21 12:16 Ur Reducing Substances Not Reportable 08/26/21 12:16 Urine Bilirubin Negative (Negative) 08/26/21 12:16 Urine Ictotest Not Reportable 08/26/21 12:16 Urine Urobilinogen 0.0 mg/dL (<2.0) 08/26/21 12:16 Ur Leukocyte Esterase Negative (Negative) 08/26/21 12:16 Urine WBC (Auto) < 1.0 /HPF (0.0-6.0) 08/26/21 12:16 Urine RBC (Auto) < 1.0 /HPF (0.0-6.0) 08/26/21 12:16 U Epithel Cells (Auto) < 1.0 /HPF (0-13.0) 08/26/21 12:16 Urine Opiates Screen Negative 08/26/21 12:16 Urine Methadone Screen Negative 08/26/21 12:16 Ur Barbiturates Screen Negative 08/26/21 12:16 Ur Phencyclidine Scrn Negative 08/26/21 12:16 Ur Amphetamines Screen Negative 08/26/21 12:16 U Benzodiazepines Scrn Negative 08/26/21 12:16 Urine Cocaine Screen Negative 08/26/21 12:16 U Marijuana (THC) Screen Negative 08/26/21 12:16 Drugs of Abuse Note Disclamer 08/26/21 12:16 Blood Type A POSITIVE 08/26/21 13:02 Antibody Screen Negative 08/26/21 13:02 [place]lin/IV: Voiding Method Toilet Active Medications - Current Medications Current Medications: Generic Name Dose Route Start Last Admin Trade Name Freq PRN Reason Stop Dose Admin Acetaminophen 650 mg 08/26/21 16:13 Acetaminophen 325 Mg Tab PO Q4H PRN Pain MILD(1-3)/Fever >100.5/NGUYEN Al Hydrox/Mg Hydrox/Simethicone 30 ml 08/26/21 18:46 Alum-Mag Hydroxide-Simethicone 190-397-59bc/5ml Oral Liqd 30 Ml PO Q2H PRN Indigestion Albuterol 2.5 mg 08/26/21 16:13 Albuterol 2.5 Mg/3 Ml Nebu IH Q4HRT PRN Shortness Of Breath Benztropine Mesylate 1 mg 08/26/21 22:00 08/27/21 09:43 Benztropine 1 Mg Tab PO 1 mg BID IKE Administration Diphenhydramine HCl 25 mg 08/27/21 09:00 08/27/21 09:45 Diphenhydramine 50 Mg/Ml Vial IV 25 mg Q8H PRN Administration Itching Folic Acid 1 mg 08/27/21 10:00 08/27/21 09:44 Folic Acid 1 Mg Tab PO 1 mg QDAY IKE Administration Furosemide 20 mg 08/27/21 10:00 08/27/21 09:44 Furosemide 20 Mg Tab PO 20 mg QAM IKE Administration Hydromorphone HCl 0.5 mg 08/27/21 10:00 Hydromorphone 0.5 Mg/0.5 Ml Inj IV Q4H PRN Pain , Severe (7-10) Hydroxyurea 500 mg 08/27/21 10:00 08/27/21 09:44 Hydroxyurea 500 Mg Cap PO 500 mg QAM IKE Administration Hydroxyzine Pamoate 25 mg 08/26/21 20:00 08/26/21 23:48 Hydroxyzine Pamoate 25 Mg Cap PO Not Given TID IKE Sodium Chloride 1,000 mls @ 75 mls/hr 08/26/21 16:15 08/26/21 18:46 Nacl 0.9% 1000 Ml IV 75 mls/hr DIRECT IKE Administration [place] Carbonate 300 mg 08/27/21 10:00 08/27/21 09:43 [place] Carbonate 300 Mg Cap PO 300 mg QAM IKE Administration [place] Carbonate 600 mg 08/26/21 22:00 08/26/21 21:25 [place] Carbonate 300 Mg Cap PO 600 mg QHS IKE Administration Magnesium Hydroxide 30 ml 08/26/21 18:46 Magnesium Hydroxide (Mom) Oral Liqd Udc PO Q12H PRN constipation Metoprolol Tartrate 25 mg 08/26/21 22:00 08/27/21 09:44 Metoprolol Tartrate 25 Mg Tab PO 25 mg BID IKE Administration Ondansetron HCl 4 mg 08/26/21 16:13 Ondansetron 4 Mg/2 Ml Inj IV Q8H PRN Nausea And Vomiting Oxycodone/Acetaminophen 1 tab 08/26/21 16:13 08/27/21 05:11 Oxycodone /Acetaminophen 5-325mg Tab PO 1 tab Q6H PRN Administration Pain, Moderate (4-6) Potassium Chloride 20 meq 08/27/21 10:00 08/27/21 09:44 Potassium Chloride Er 20 Meq Tab PO 20 meq QAM IKE Administration Quetiapine Fumarate 600 mg 08/26/21 22:00 08/26/21 21:26 Quetiapine 200 Mg Tab PO 600 mg QHS IKE Administration Sodium Chloride 10 ml 08/26/21 22:00 08/27/21 09:44 Sodium Chloride 0.9% 10 Ml Flush Syringe IV 10 ml BID IKE Administration Sodium Chloride 10 ml 08/26/21 16:13 Sodium Chloride 0.9% 10 Ml Flush Syringe IV PRN PRN LINE FLUSH Ziprasidone 20 mg 08/26/21 18:46 Ziprasidone Mesylate 20 Mg Vial IM Q6H PRN Agitation
[2021-08-27] MEDS: hydrOXYzine PAMOATE 25 MG CAP PO SCH ×3 (13:02→21:04)
[2021-08-27] MEDS: HYDROmorphone 1 MG/1 ML INJ IV PRN ×3 (13:13→21:06)
[2021-08-27 15:31] LABS: Hematocrit 23.9 % (35.5-45.6)
[2021-08-27] MEDS: QUEtiapine 200 MG TAB PO SCH ×2 (21:05→21:12)
[2021-08-28] MEDS: diphenhydrAMINE 50 MG/ML VIAL IV PRN ×3 (00:56→18:22)
[2021-08-28] MEDS: HYDROmorphone 1 MG/1 ML INJ IV PRN ×6 (00:57→21:32)
[2021-08-28 05:17] LABS: Basophils # (Auto) 0.1 K/mm3 (0.0-0.1); Basophils % (Auto) 0.7 % (0.0-1.8); Eosinophils # (Auto) 0.1 K/mm3 (0.0-0.4); Eosinophils % (Auto) 0.7 % (0.0-4.3); Hematocrit 23.9 % (35.5-45.6); Lymphocytes # (Auto) 2.6 K/mm3 (1.2-5.4); Lymphocytes % (Auto) 19.9 % (13.4-35.0); Mean Corpuscular HGB Conc 34 % (32-34); Mean Corpuscular Volume 91 fl (84-94); Monocytes # (Auto) 0.5 K/mm3 (0.0-0.8); Platelet Count 299 K/mm3 (140-440); Red Blood Count 2.63 M/mm3 (3.65-5.03); Red Cell Distribution Width 17.4 % (13.2-15.2)
[2021-08-28 05:46] LABS: Albumin 3.8 g/dL (3.9-5); Bilirubin,Direct 0.5 mg/dL (0-0.2)
[2021-08-28] MEDS: SODIUM CHLORIDE 0.9% 1000 ML 1,000 ML IV SCH (06:24)
--- NOTE | 2021-08-28 08:10 | Progress Note ---
Assessment and Plan Assessment and plan: -- Sickle cell disease with crisis Sickle cell disease protocol: IV fluid resuscitation therapy, reticulocyte count, thiamine, folic acid, hydroxyurea, outpatient follow-up with hematology se rvice., Pain control. --Severe sickle cell anemia; Received total 2 units of PRBC Hb improved from 5.8-8.0 Closely monitor H&H and transfuse additional PRBC as needed - SIRS (systemic inflammatory response syndrome) Closely monitor, evaluate and rule out any sepsis --Hypotension/ significantly improved today blood pressures 125/71 Closely monitor adjust as needed --History of cirrhosis liver with ascites; Patient follows with [facility], for liver transplantation evaluation Stable continue supportive care - Nicotine dependence Smoking cessation counseling done spent 15 minutes Nicotine patch as needed -- Schizoaffective disorder No acute exacerbation at this time, outpatient psychiatric follow-up -- Generalized anxiety disorder Benzodiazepine therapy as clinical indicated, supportive care, continue medical management. -- Chronic diastolic CHF Continue medical management, strict I's/O, monitor urine output every shift blood pressure control, diuresis with Lasix. No acute exacerbation at this time. -- DVT prophylaxis SCD to bilateral lower extremities while in bed -- Advance care planning Disease education data, care plan discussed, diagnoses discussed, prognosis discussed, patient acknowledges understanding agreement with care plan, +30 minutes. --Preventative health care Patient counseled regarding medication compliance, adequate hydration, risk factor reduction. Patient instructed to follow-up with primary care physician for all age and risk factor appropriate screening test. Patient instructed to follow-up with hematology as outpatient. +30 minutes. Closely monitor the patient and adjust management as needed Plan of care reviewed with the patient and his nurse Discharge planning per case management Brief history and Hospital course; 35-year-old male patient with significant past medical history of sickle cell disease, sickle cell anemia, cirrhosis liver waiting for liver transplantation, follows with [facility] physicians Was admitted with severe sickle cell crisis, symptomatic anemia with hemoglobin of 5.8, patient received 2 units of PRBC with improvement of Hb to 8.0, today patient feels much better Still has significant body pains. 08/28/2021; patient's hemoglobin improved to 5.8 to 8.0 Received total 2 units of PRBC transfusion, LFTs are trending down Patient still complains of pain Blood pressures improved Disposition; DC home tomorrow if stable History Interval history: I have seen and examined the patient at the bedside this morning Patient's chart and medications reviewed No new events reported by the nursing, patient received 2 units of PRBC yesterday Hemoglobin improved from 5.8-8.0. Patient continues to complain generalized body pains Requesting for more pain medications Afebrile and other vital signs reviewed Hospitalist Physical - Constitutional Vitals: Temp Pulse Resp BP Pulse Ox 99.7 F H 85 18 125/71 96 08/27/21 21:03 08/27/21 21:03 08/27/21 21:03 08/27/21 21:04 08/27/21 21:03 General appearance: Present: mild distress, cachectic - EENT Eyes: Present: PERRL, EOM intact - Neck Neck: Present: supple, normal ROM - Respiratory Respiratory effort: normal Respiratory: bilateral: diminished, negative: rales, rhonchi, wheezing - Cardiovascular Rhythm: regular Heart Sounds: Present: S1 & S2 - Extremities Extremities: no ischemia, No edema - Abdominal General gastrointestinal: soft, non-tender, non-distended, normal bowel sounds - Psychiatric Psychiatric: cooperative - Neurologic Neurologic: moves all extremities HEART Score - HEART Score Troponin: Troponin T < 0.010 ng/mL (0.00-0.029) 08/26/21 14:43 Results - Labs CBC & Chem 7: 08/28/21 04:52 08/27/21 04:55 Labs: Laboratory Last Values WBC 12.9 K/mm3 (4.5-11.0) H 08/28/21 04:52 RBC 2.63 M/mm3 (3.65-5.03) L 08/28/21 04:52 Hgb 8.0 gm/dl (11.8-15.2) L 08/28/21 04:52 Hct 23.9 % (35.5-45.6) L 08/28/21 04:52 MCV 91 fl (84-94) 08/28/21 04:52 MCH 31 pg (28-32) 08/28/21 04:52 MCHC 34 % (32-34) 08/28/21 04:52 RDW 17.4 % (13.2-15.2) H 08/28/21 04:52 Plt Count 299 K/mm3 (140-440) 08/28/21 04:52 Lymph % (Auto) 19.9 % (13.4-35.0) 08/28/21 04:52 [place] % (Auto) 4.0 % (0.0-7.3) 08/28/21 04:52 Eos % (Auto) 0.7 % (0.0-4.3) 08/28/21 04:52 Baso % (Auto) 0.7 % (0.0-1.8) 08/28/21 04:52 Lymph # (Auto) 2.6 K/mm3 (1.2-5.4) 08/28/21 04:52 [place] # (Auto) 0.5 K/mm3 (0.0-0.8) 08/28/21 04:52 Eos # (Auto) 0.1 K/mm3 (0.0-0.4) 08/28/21 04:52 Baso # (Auto) 0.1 K/mm3 (0.0-0.1) 08/28/21 04:52 Seg Neutrophils % 74.7 % (40.0-70.0) H 08/28/21 04:52 Seg Neutrophils # 9.6 K/mm3 (1.8-7.7) H 08/28/21 04:52 Percent Retic 8.67 % (0.78-2.58) H 08/26/21 10:47 Sodium 139 mmol/L (137-145) 08/27/21 04:55 Potassium 4.8 mmol/L (3.6-5.0) 08/27/21 04:55 Chloride 107.4 mmol/L (98-107) H 08/27/21 04:55 Carbon Dioxide 23 mmol/L (22-30) 08/27/21 04:55 Anion Gap 13 mmol/L 08/27/21 04:55 BUN 12 mg/dL (9-20) 08/27/21 04:55 Creatinine 0.5 mg/dL (0.8-1.3) L 08/27/21 04:55 Estimated GFR > 60 ml/min 08/27/21 04:55 BUN/Creatinine Ratio 24 % 08/27/21 04:55 Glucose 88 mg/dL (75-100) 08/27/21 04:55 Calcium 8.6 mg/dL (8.4-10.2) 08/27/21 04:55 Magnesium 1.70 mg/dL (1.7-2.3) 08/28/21 04:52 Total Bilirubin 2.00 mg/dL (0.1-1.2) H 08/28/21 04:52 Direct Bilirubin 0.5 mg/dL (0-0.2) H 08/28/21 04:52 Indirect Bilirubin 1.5 mg/dL 08/28/21 04:52 AST 139 units/L (5-40) H 08/28/21 04:52 ALT 145 units/L (7-56) H 08/28/21 04:52 Alkaline Phosphatase 150 units/L (35-129) H 08/28/21 04:52 Total Creatine Kinase 25 units/L (55-170) L 08/26/21 12:16 Troponin T < 0.010 ng/mL (0.00-0.029) 08/26/21 14:43 NT-Pro-B Natriuret Pep 172.9 pg/mL (0-450) 08/26/21 12:16 Total Protein 6.8 g/dL (6.3-8.2) 08/28/21 04:52 Albumin 3.8 g/dL (3.9-5) L 08/28/21 04:52 Albumin/Globulin Ratio 1.3 % 08/28/21 04:52 Urine Color Yellow (Yellow) 08/26/21 12:16 Urine Turbidity Clear (Clear) 08/26/21 12:16 Urine pH 5.0 (5.0-7.0) 08/26/21 12:16 Ur Specific [place] 1.015 (1.003-1.030) 08/26/21 12:16 Urine Protein <15 mg/dl mg/dL (Negative) 08/26/21 12:16 Urine Glucose (UA) Negative mg/dL (Negative) 08/26/21 12:16 Urine Ketones Negative mg/dL (Negative) 08/26/21 12:16 Urine Blood Negative (Negative) 08/26/21 12:16 Urine Nitrite Negative (Negative) 08/26/21 12:16 Ur Reducing Substances Not Reportable 08/26/21 12:16 Urine Bilirubin Negative (Negative) 08/26/21 12:16 Urine Ictotest Not Reportable 08/26/21 12:16 Urine Urobilinogen 0.0 mg/dL (<2.0) 08/26/21 12:16 Ur Leukocyte Esterase Negative (Negative) 08/26/21 12:16 Urine WBC (Auto) < 1.0 /HPF (0.0-6.0) 08/26/21 12:16 Urine RBC (Auto) < 1.0 /HPF (0.0-6.0) 08/26/21 12:16 U Epithel Cells (Auto) < 1.0 /HPF (0-13.0) 08/26/21 12:16 Urine Opiates Screen Negative 08/26/21 12:16 Urine Methadone Screen Negative 08/26/21 12:16 Ur Barbiturates Screen Negative 08/26/21 12:16 Ur Phencyclidine Scrn Negative 08/26/21 12:16 Ur Amphetamines Screen Negative 08/26/21 12:16 U Benzodiazepines Scrn Negative 08/26/21 12:16 Urine Cocaine Screen Negative 08/26/21 12:16 U Marijuana (THC) Screen Negative 08/26/21 12:16 Drugs of Abuse Note Disclamer 08/26/21 12:16 Blood Type A POSITIVE 08/26/21 13:02 Antibody Screen Negative 08/26/21 13:02 [place]/IV: Voiding Method Toilet Active Medications - Current Medications Current Medications: Generic Name Dose Route Start Last Admin Trade Name Freq PRN Reason Stop Dose Admin Acetaminophen 650 mg 08/26/21 16:13 Acetaminophen 325 Mg Tab PO Q4H PRN Pain MILD(1-3)/Fever >100.5/NGUYEN Al Hydrox/Mg Hydrox/Simethicone 30 ml 08/26/21 18:46 Alum-Mag Hydroxide-Simethicone [id number]/5ml Oral Liqd 30 Ml PO Q2H PRN Indigestion Albuterol 2.5 mg 08/26/21 16:13 Albuterol 2.5 Mg/3 Ml Nebu IH Q4HRT PRN Shortness Of Breath Benztropine Mesylate 1 mg 08/26/21 22:00 08/27/21 21:06 Benztropine 1 Mg Tab PO 1 mg BID IKE Administration Diphenhydramine HCl 25 mg 08/27/21 09:00 08/28/21 00:56 Diphenhydramine 50 Mg/Ml Vial IV 25 mg Q8H PRN Administration Itching Folic Acid 1 mg 08/27/21 10:00 08/27/21 09:44 Folic Acid 1 Mg Tab PO 1 mg QDAY IKE Administration Furosemide 20 mg 08/27/21 10:00 08/27/21 09:44 Furosemide 20 Mg Tab PO 20 mg QAM IKE Administration Hydromorphone HCl 1 mg 08/27/21 12:46 08/28/21 05:17 Hydromorphone 1 Mg/1 Ml Inj IV 1 mg Q4H PRN Administration Pain , Severe (7-10) Hydroxyurea 500 mg 08/27/21 10:00 08/27/21 09:44 Hydroxyurea 500 Mg Cap PO 500 mg QAM IKE Administration Hydroxyzine Pamoate 25 mg 08/26/21 20:00 08/27/21 21:04 Hydroxyzine Pamoate 25 Mg Cap PO 25 mg TID IKE Administration Sodium Chloride 1,000 mls @ 75 mls/hr 08/26/21 16:15 08/28/21 06:24 Nacl 0.9% 1000 Ml IV 75 mls/hr DIRECT IKE Administration [place] Carbonate 300 mg 08/27/21 10:00 08/27/21 09:43 [place] Carbonate 300 Mg Cap PO 300 mg QAM IKE Administration [place] Carbonate 600 mg 08/26/21 22:00 08/27/21 21:06 [place] Carbonate 300 Mg Cap PO 600 mg QHS IKE Administration Magnesium Hydroxide 30 ml 08/26/21 18:46 Magnesium Hydroxide (Mom) Oral Liqd Udc PO Q12H PRN constipation Metoprolol Tartrate 25 mg 08/26/21 22:00 08/27/21 21:04 Metoprolol Tartrate 25 Mg Tab PO 25 mg BID IKE Administration Ondansetron HCl 4 mg 08/26/21 16:13 Ondansetron 4 Mg/2 Ml Inj IV Q8H PRN Nausea And Vomiting Oxycodone/Acetaminophen 1 tab 08/26/21 16:13 08/27/21 05:11 Oxycodone /Acetaminophen 5-325mg Tab PO 1 tab Q6H PRN Administration Pain, Moderate (4-6) Potassium Chloride 20 meq 08/27/21 10:00 08/27/21 09:44 Potassium Chloride Er 20 Meq Tab PO 20 meq QAM IKE Administration Quetiapine Fumarate 600 mg 08/26/21 22:00 08/27/21 21:12 Quetiapine 200 Mg Tab PO Not Given QHS IKE Sodium Chloride 10 ml 08/26/21 22:00 08/27/21 21:07 Sodium Chloride 0.9% 10 Ml Flush Syringe IV 10 ml BID IKE Administration Sodium Chloride 10 ml 08/26/21 16:13 08/28/21 05:18 Sodium Chloride 0.9% 10 Ml Flush Syringe IV 10 ml PRN PRN Administration LINE FLUSH Ziprasidone 20 mg 08/26/21 18:46 Ziprasidone Mesylate 20 Mg Vial IM Q6H PRN Agitation
[2021-08-28] MEDS: POTASSIUM CHLORIDE ER 20 MEQ TAB PO SCH (09:11)
[2021-08-28] MEDS: BENZTROPINE 1 MG TAB PO SCH ×2 (09:11→21:35)
[2021-08-28] MEDS: LITHIUM CARBONATE 300 MG CAP PO SCH ×2 (09:11→21:52)
[2021-08-28] MEDS: FUROSEMIDE 20 MG TAB PO SCH (09:11)
[2021-08-28] MEDS: hydrOXYzine PAMOATE 25 MG CAP PO SCH ×3 (09:11→21:37)
[2021-08-28] MEDS: FOLIC ACID 1 MG TAB PO SCH (09:11)
[2021-08-28] MEDS: METOPROLOL TARTRATE 25 MG TAB PO SCH ×2 (09:11→21:52)
[2021-08-28] MEDS: HYDROXYUREA 500 MG CAP PO SCH (10:15)
[2021-08-28] MEDS: QUEtiapine 200 MG TAB PO SCH (21:35)
[2021-08-29] MEDS: diphenhydrAMINE 50 MG/ML VIAL IV PRN ×3 (01:23→17:43)
[2021-08-29] MEDS: HYDROmorphone 1 MG/1 ML INJ IV PRN ×6 (01:25→21:31)
[2021-08-29 05:14] LABS: Basophils % (Auto) 0.2 % (0.0-1.8); Eosinophils # (Auto) 0.2 K/mm3 (0.0-0.4); Eosinophils % (Auto) 1.2 % (0.0-4.3); Hematocrit 24.6 % (35.5-45.6); Hemoglobin 8.2 gm/dl (11.8-15.2); Lymphocytes # (Auto) 3.3 K/mm3 (1.2-5.4); Mean Corpuscular HGB Conc 33 % (32-34); Mean Corpuscular Volume 93 fl (84-94); Monocytes # (Auto) 0.6 K/mm3 (0.0-0.8); Monocytes % (Auto) 4.1 % (0.0-7.3); Platelet Count 281 K/mm3 (140-440); Red Blood Count 2.64 M/mm3 (3.65-5.03); Red Cell Distribution Width 17.4 % (13.2-15.2)
[2021-08-29 05:39] LABS: Alanine Aminotransferase 134 units/L (7-56); Blood Urea Nitrogen 20 mg/dL (9-20); Hemolysis Index 7
[2021-08-29 05:41] LABS: BUN/Creatinine Ratio 33
[2021-08-29] MEDS: FOLIC ACID 1 MG TAB PO SCH (09:25)
[2021-08-29] MEDS: FUROSEMIDE 20 MG TAB PO SCH (09:25)
[2021-08-29] MEDS: POTASSIUM CHLORIDE ER 20 MEQ TAB PO SCH (09:26)
[2021-08-29] MEDS: LITHIUM CARBONATE 300 MG CAP PO SCH ×2 (09:26→22:01)
[2021-08-29] MEDS: hydrOXYzine PAMOATE 25 MG CAP PO SCH ×3 (09:26→21:55)
[2021-08-29] MEDS: METOPROLOL TARTRATE 25 MG TAB PO SCH ×2 (09:27→22:11)
[2021-08-29] MEDS: oxyCODONE /ACETAMINOPHEN 5-325MG TAB PO PRN (11:26)
[2021-08-29] MEDS: HYDROXYUREA 500 MG CAP PO SCH (11:27)
[2021-08-29] MEDS: BENZTROPINE 1 MG TAB PO SCH ×2 (11:27→22:59)
[2021-08-29] MEDS: SODIUM CHLORIDE 0.9% 1000 ML 1,000 ML IV SCH (17:50)
[2021-08-29] MEDS: QUEtiapine 200 MG TAB PO SCH ×2 (22:58→23:25)
[2021-08-30] MEDS: HYDROmorphone 1 MG/1 ML INJ IV PRN ×5 (03:15→21:14)
[2021-08-30] MEDS: diphenhydrAMINE 50 MG/ML VIAL IV PRN ×3 (03:16→21:14)
[2021-08-30] MEDS: oxyCODONE /ACETAMINOPHEN 5-325MG TAB PO PRN (05:18)
--- NOTE | 2021-08-30 07:58 | Progress Note ---
Assessment and Plan Assessment and Plan -- Sickle cell disease with crisis Sickle cell disease protocol: IV fluid resuscitation therapy, reticulocyte count, thiamine, folic acid, hydroxyurea, outpatient follow-up with hematology service., Pain control. --Severe sickle cell anemia; Received total 2 units of PRBC Hb improved from 5.8-8.0 Closely monitor H&H and transfuse additional PRBC as needed - SIRS (systemic inflammatory response syndrome) Closely monitor, evaluate and rule out any sepsis --Hypotension/ significantly improved today blood pressures 125/71 Closely monitor adjust as needed --History of cirrhosis liver with ascites; Patient follows with [place], for liver transplantation evaluation Stable continue supportive care - Nicotine dependence Smoking cessation counseling done spent 15 minutes Nicotine patch as needed -- Schizoaffective disorder No acute exacerbation at this time, outpatient psychiatric follow-up -- Generalized anxiety disorder Benzodiazepine therapy as clinical indicated, supportive care, continue medical management. -- Chronic diastolic CHF Continue medical management, strict I's/O, monitor urine output every shift blood pressure control, diuresis with Lasix. No acute exacerbation at this time. -- DVT prophylaxis SCD to bilateral lower extremities while in bed -- Advance care planning Disease education data, care plan discussed, diagnoses discussed, prognosis discussed, patient acknowledges understanding agreement with care plan, +30 minutes. --Preventative health care Patient counseled regarding medication compliance, adequate hydration, risk factor reduction. Patient instructed to follow-up with primary care physician for all age and risk factor appropriate screening test. Patient instructed to follow-up with hematology as outpatient. +30 minutes. Closely monitor the patient and adjust management as needed Plan of care reviewed with the patient and his nurse Subjective Date of service: 08/29/21 Principal diagnosis: SCC Interval history: 35 YO Male with NUHA, SCD, HTN, Nicotine Dependence, CHF, Migraine NGUYEN, Schizoaffective Disorder, Chronic Pain Syndrome presents to ED for evaluation. Patient reports "I am having a crisis". Patient states that he has experienced pain all over his body over the past 1 day with persistent symptoms over the same timeframe. Patient states the pain is 9/10, constant, without exacerbating or alleviating factors. Patient transported to [facility] via private vehicle for further care and evaluation of the aforementioned symptoms. The patient was seen and evaluated emergency department. All lab and imaging studies reviewed. Patient found to have clinical symptoms consistent with sickle cell disease crisis. However patient does appear to complain of symptoms of pain out of proportion to exam and interview. Patient treated with IV fluid resuscitation therapy and pain control. Patient denies fever, chills, palpitation, productive cough, recent contact, skin rash, known exposure to COVID-19. No prior admission for review. All medication listed at time of admission has been reconciled. Advanced care planning conducted in ED. CT scan abdomen pelvis ordered and is pending at time of admission. 08/28/2021; patient's hemoglobin improved to 5.8 to 8.0 Received total 2 units of PRBC transfusion, LFTs are trending down Patient still complains of pain Blood pressures improved 08/29/2021 Patient continues to have pain Abdomen distended Objective - Constitutional Vitals: Vital Signs - 12hr 08/29/21 22:11 Pulse Rate 80 Blood Pressure 124/63 General appearance: Present: no acute distress, well-nourished - EENT Eyes: PERRL, EOM intact ENT: hearing intact, clear oral mucosa Ears: bilateral: normal - Neck Neck: supple, normal ROM - Respiratory Respiratory effort: normal Respiratory: bilateral: CTA - Breasts Breasts: normal - Cardiovascular Heart rate: 78 Rhythm: regular Heart Sounds: Present: S1 & S2. Absent: gallop, rub Extremities: pulses intact, No edema, normal color, Full ROM - Gastrointestinal General gastrointestinal: Present: soft, non-tender, distended, normal bowel sounds - Genitourinary Male genitourinary: normal - Integumentary Integumentary: clear, warm, dry - Musculoskeletal Musculoskeletal: 1, strength equal bilaterally - Neurologic Neurologic: moves all extremities - Psychiatric Psychiatric: memory intact, appropriate mood/affect, intact judgment & insight - Labs CBC & Chem 7: 08/29/21 04:49 08/29/21 04:49 HEART Score - HEART Score Troponin: Troponin T < 0.010 ng/mL (0.00-0.029) 08/26/21 14:43
--- NOTE | 2021-08-30 07:59 | Progress Note ---
Assessment and Plan Assessment and Plan -- Sickle cell disease with crisis Sickle cell disease protocol: IV fluid resuscitation therapy, reticulocyte count, thiamine, folic acid, hydroxyurea, outpatient follow-up with hematology service., Pain control. --Severe sickle cell anemia; Received total 2 units of PRBC Hb improved from 5.8-8.0 Closely monitor H&H and transfuse additional PRBC as needed - SIRS (systemic inflammatory response syndrome) Closely monitor, evaluate and rule out any sepsis --Hypotension/ significantly improved today blood pressures 125/71 Closely monitor adjust as needed --History of cirrhosis liver with ascites; Patient follows with [facility], for liver transplantation evaluation Stable continue supportive care - Nicotine dependence Smoking cessation counseling done spent 15 minutes Nicotine patch as needed -- Schizoaffective disorder No acute exacerbation at this time, outpatient psychiatric follow-up -- Generalized anxiety disorder Benzodiazepine therapy as clinical indicated, supportive care, continue medical management. -- Chronic diastolic CHF Continue medical management, strict I's/O, monitor urine output every shift blood pressure control, diuresis with Lasix. No acute exacerbation at this time. -- DVT prophylaxis SCD to bilateral lower extremities while in bed -- Advance care planning Disease education data, care plan discussed, diagnoses discussed, prognosis discussed, patient acknowledges understanding agreement with care plan, +30 minutes. --Preventative health care Patient counseled regarding medication compliance, adequate hydration, risk factor reduction. Patient instructed to follow-up with primary care physician for all age and risk factor appropriate screening test. Patient instructed to follow-up with hematology as outpatient. +30 minutes. Closely monitor the patient and adjust management as needed Plan of care reviewed with the patient and his nurse Subjective Date of service: 08/30/21 Principal diagnosis: SCC Interval history: 35 YO Male with NUHA, SCD, HTN, Nicotine Dependence, CHF, Migraine NGUYEN, Schizoaffective Disorder, Chronic Pain Syndrome presents to ED for evaluation. Patient reports "I am having a crisis". Patient states that he has experienced pain all over his body over the past 1 day with persistent symptoms over the same timeframe. Patient states the pain is 9/10, constant, without exacerbating or alleviating factors. Patient transported to [facility] via private vehicle for further care and evaluation of the aforementioned symptoms. The patient was seen and evaluated emergency department. All lab and imaging studies reviewed. Patient found to have clinical symptoms consistent with sickle cell disease crisis. However patient does appear to complain of symptoms of pain out of proportion to exam and interview. Patient treated with IV fluid resuscitation therapy and pain control. Patient denies fever, chills, palpitation, productive cough, recent contact, skin rash, known exposure to COVID-19. No prior admission for review. All medication listed at time of admission has been reconciled. Advanced care planning conducted in ED. CT scan abdomen pelvis ordered and is pending at time of admission. 08/28/2021; patient's hemoglobin improved to 5.8 to 8.0 Received total 2 units of PRBC transfusion, LFTs are trending down Patient still complains of pain Blood pressures improved 08/29/2021 Complains of abdominal pain 08/30/[address] abdomen reviewed No ascites Objective - Constitutional Vitals: Vital Signs - 12hr 08/29/21 22:11 Pulse Rate 80 Blood Pressure 124/63 General appearance: Present: no acute distress, well-nourished - EENT Eyes: PERRL, EOM intact ENT: hearing intact, clear oral mucosa Ears: bilateral: normal - Neck Neck: supple, normal ROM - Respiratory Respiratory effort: normal Respiratory: bilateral: CTA - Breasts Breasts: normal - Cardiovascular Rhythm: regular Heart Sounds: Present: S1 & S2. Absent: gallop, rub Extremities: pulses intact, No edema, normal color, Full ROM - Gastrointestinal General gastrointestinal: Present: soft, non-tender, non-distended, normal bowel sounds - Genitourinary Male genitourinary: normal - Integumentary Integumentary: clear, warm, dry - Musculoskeletal Musculoskeletal: 1, strength equal bilaterally - Neurologic Neurologic: moves all extremities - Psychiatric Psychiatric: memory intact, appropriate mood/affect, intact judgment & insight - Labs CBC & Chem 7: 08/29/21 04:49 08/29/21 04:49 HEART Score - HEART Score Troponin: Troponin T < 0.010 ng/mL (0.00-0.029) 08/26/21 14:43
[2021-08-30] MEDS: BENZTROPINE 1 MG TAB PO SCH ×2 (09:01→21:16)
[2021-08-30] MEDS: hydrOXYzine PAMOATE 25 MG CAP PO SCH ×3 (09:01→21:16)
[2021-08-30] MEDS: FOLIC ACID 1 MG TAB PO SCH (09:01)
[2021-08-30] MEDS: HYDROXYUREA 500 MG CAP PO SCH (09:01)
[2021-08-30] MEDS: METOPROLOL TARTRATE 25 MG TAB PO SCH ×2 (09:01→21:15)
[2021-08-30] MEDS: FUROSEMIDE 20 MG TAB PO SCH (09:01)
[2021-08-30] MEDS: LITHIUM CARBONATE 300 MG CAP PO SCH ×2 (09:01→21:15)
[2021-08-30] MEDS: SODIUM CHLORIDE 0.9% 1000 ML 1,000 ML IV SCH ×2 (09:05→21:16)
[2021-08-30] MEDS: QUEtiapine 200 MG TAB PO SCH (21:31)
[2021-08-31] MEDS: HYDROmorphone 1 MG/1 ML INJ IV PRN ×7 (01:38→22:02)
[2021-08-31] MEDS: diphenhydrAMINE 50 MG/ML VIAL IV PRN ×5 (05:24→22:02)
[2021-08-31] MEDS: HYDROXYUREA 500 MG CAP PO SCH (09:33)
[2021-08-31] MEDS: hydrOXYzine PAMOATE 25 MG CAP PO SCH ×3 (09:33→22:03)
[2021-08-31] MEDS: METOPROLOL TARTRATE 25 MG TAB PO SCH ×2 (09:33→22:03)
[2021-08-31] MEDS: BENZTROPINE 1 MG TAB PO SCH ×2 (09:33→22:03)
[2021-08-31] MEDS: FUROSEMIDE 20 MG TAB PO SCH (09:33)
[2021-08-31] MEDS: LITHIUM CARBONATE 300 MG CAP PO SCH ×2 (09:33→22:02)
--- NOTE | 2021-08-31 10:02 | Progress Note ---
Assessment and Plan Assessment and Plan -- Sickle cell disease with crisis Check reticulocyte count --Distended abdomen Check abdominal ultrasound CT abdomen does not show any ascites - SIRS (systemic inflammatory response syndrome) Closely monitor, evaluate and rule out any sepsis --Hypotension/ significantly improved today blood pressures 125/71 Closely monitor adjust as needed --History of cirrhosis liver with ascites; Patient follows with [facility], for liver transplantation evaluation Stable continue supportive care - Nicotine dependence Smoking cessation counseling done spent 15 minutes Nicotine patch as needed -- Schizoaffective disorder No acute exacerbation at this time, outpatient psychiatric follow-up -- Generalized anxiety disorder Benzodiazepine therapy as clinical indicated, supportive care, continue medical management. -- Chronic diastolic CHF Continue medical management, strict I's/O, monitor urine output every shift blood pressure control, diuresis with Lasix. No acute exacerbation at this time. -- DVT prophylaxis SCD to bilateral lower extremities while in bed -- Advance care planning Disease education data, care plan discussed, diagnoses discussed, prognosis discussed, patient acknowledges understanding agreement with care plan, +30 minutes. --Preventative health care Patient counseled regarding medication compliance, adequate hydration, risk factor reduction. Patient instructed to follow-up with primary care physi cory for all age and risk factor appropriate screening test. Patient instructed to follow-up with hematology as outpatient. +30 minutes. Closely monitor the patient and adjust management as needed Plan of care reviewed with the patient and his nurse Subjective Date of service: 08/31/21 Principal diagnosis: SCC versus Interval history: 35 YO Male with NUHA, SCD, HTN, Nicotine Dependence, CHF, Migraine NGUYEN, Schizoaffective Disorder, Chronic Pain Syndrome presents to ED for evaluation. Patient reports "I am having a crisis". Patient states that he has experienced pain all over his body over the past 1 day with persistent symptoms over the same timeframe. Patient states the pain is 9/10, constant, without exacerbating or alleviating factors. Patient transported to [facility] via private vehicle for fu rther care and evaluation of the aforementioned symptoms. The patient was seen and evaluated emergency department. All lab and imaging studies reviewed. Patient found to have clinical symptoms consistent with sickle cell disease crisis. However patient does appear to complain of symptoms of pain out of proportion to exam and interview. Patient treated with IV fluid resuscitation therapy and pain control. Patient denies fever, chills, palpitation, productive cough, recent contact, skin rash, known exposure to COVID-19. No prior admission for review. All medication listed at time of admission has been reconciled. Advanced care planning conducted in ED. CT scan abdomen pelvis ordered and is pending at time of admission. 08/28/2021; patient's hemoglobin improved to 5.8 to 8.0 Received total 2 units of PRBC transfusion, LFTs are trending down Patient still complains of pain Blood pressures improved 08/29/2021 Complains of abdominal pain 08/30/[address] abdomen reviewed No ascites 08/31/2021 Abdominal ultrasound requested Abdomen distended Distended Objective - Constitutional Vitals: Vital Signs - 12hr 08/30/21 23:00 Respiratory 18 Rate O2 Sat by Pulse 98 Oximetry General appearance: Present: no acute distress, well-nourished - EENT Eyes: PERRL, EOM intact ENT: hearing intact, clear oral mucosa Ears: bilateral: normal - Neck Neck: supple, normal ROM - Respiratory Respiratory effort: normal Respiratory: bilateral: CTA - Breasts Breasts: normal - Cardiovascular Heart rate: 78 Rhythm: regular Heart Sounds: Present: S1 & S2. Absent: gallop, rub Extremities: pulses intact, No edema, normal color, Full ROM - Gastrointestinal General gastrointestinal: Present: soft, non-tender, non-distended, normal bowel sounds - Genitourinary Male genitourinary: normal - Integumentary Integumentary: clear, warm, dry - Musculoskeletal Musculoskeletal: 1, strength equal bilaterally - Neurologic Neurologic: moves all extremities - Psychiatric Psychiatric: memory intact, appropriate mood/affect, intact judgment & insight - Labs CBC & Chem 7: 08/29/21 04:49 08/29/21 04:49 HEART Score - HEART Score Troponin: Troponin T < 0.010 ng/mL (0.00-0.029) 08/26/21 14:43
[2021-08-31] MEDS: FOLIC ACID 1 MG TAB PO SCH (10:59)
[2021-08-31] MEDS: SODIUM CHLORIDE 0.9% 1000 ML 1,000 ML IV SCH (12:59)
[2021-08-31] MEDS: QUEtiapine 200 MG TAB PO SCH (21:33)
[2021-08-31 22:57] VITALS: BP 116/65
[2021-09-01] MEDS: HYDROmorphone 1 MG/1 ML INJ IV PRN ×4 (01:29→12:15)
[2021-09-01] MEDS: diphenhydrAMINE 50 MG/ML VIAL IV PRN ×4 (01:30→12:16)
[2021-09-01] MEDS: SODIUM CHLORIDE 0.9% 1000 ML 1,000 ML IV SCH (06:00)
[2021-09-01 06:07] LABS: Basophils # (Auto) 0.1 K/mm3 (0.0-0.1); Basophils % (Auto) 0.4 % (0.0-1.8); Eosinophils # (Auto) 0.2 K/mm3 (0.0-0.4); Eosinophils % (Auto) 1.1 % (0.0-4.3); Hematocrit 21.8 % (35.5-45.6); Hemoglobin 7.3 gm/dl (11.8-15.2); Lymphocytes # (Auto) 3.5 K/mm3 (1.2-5.4); Lymphocytes % (Auto) 22.4 % (13.4-35.0); Mean Corpuscular HGB Conc 33 % (32-34); Mean Corpuscular Volume 91 fl (84-94); Monocytes # (Auto) 1.2 K/mm3 (0.0-0.8); Platelet Count 255 K/mm3 (140-440); Red Cell Distribution Width 16.9 % (13.2-15.2)
[2021-09-01 06:26] LABS: Alanine Aminotransferase 123 units/L (7-56); Blood Urea Nitrogen 25 mg/dL (9-20); Calcium 9.5 mg/dL (8.4-10.2); Hemolysis Index 2
[2021-09-01 06:37] LABS: BUN/Creatinine Ratio 36
--- NOTE | 2021-09-01 09:29 | Ultrasound Report ---
ULTRASOUND ABDOMEN, COMPLETE INDICATION / CLINICAL INFORMATION: Abdominal distention. COMPARISON: None available. FINDINGS: PANCREAS: No significant abnormality. ABDOMINAL AORTA: No significant abnormality. IVC: No significant abnormality. LIVER: Liver is enlarged measuring at least 17 cm however right lobe is not well seen due to bowel ga s. GALLBLADDER: Removed BILE DUCTS: No significant abnormality. Common bile duct measures 6 mm. KIDNEYS: Right: No significant abnormality. Left: No significant abnormality. SPLEEN: Not well seen FREE FLUID: None. ADDITIONAL FINDINGS: None. IMPRESSION: 1. Hepatomegaly. Right hepatic lobe is not well seen due to bowel gas. 2. Prior cholecystectomy Signer Name: Atif Rocha MD Signed: 09/01/2021 9:24 AM Workstation Name: [id number]
[2021-09-01] MEDS: METOPROLOL TARTRATE 25 MG TAB PO SCH (09:33)
[2021-09-01] MEDS: HYDROXYUREA 500 MG CAP PO SCH (09:33)
[2021-09-01] MEDS: FOLIC ACID 1 MG TAB PO SCH (09:33)
[2021-09-01] MEDS: hydrOXYzine PAMOATE 25 MG CAP PO SCH (09:33)
[2021-09-01] MEDS: FUROSEMIDE 20 MG TAB PO SCH (09:34)
[2021-09-01] MEDS: LITHIUM CARBONATE 300 MG CAP PO SCH (09:34)
--- NOTE | 2021-09-01 10:03 | Progress Note ---
Assessment and Plan Assessment and plan: -- Sickle cell disease with crisis Check reticulocyte count --Sickle cell anemia; Received 2 units of PRBC transfusion on admission Hemoglobin today at 7.3[5.8 on admission] -Distended abdomen Check abdominal ultrasound CT abdomen does not show any ascites - SIRS (systemic inflammatory response syndrome) Closely monitor, evaluate and rule out any sepsis --Hypotension/ significantly improved today blood pressures 125/71 Closely monitor adjust as needed --History of cirrhosis liver with ascites; Patient follows with [facility], for liver transplantation evaluation Stable continue supportive care - Nicotine dependence Smoking cessation counseling done spent 15 minutes Nicotine patch as needed -- Schizoaffective disorder No acute exacerbation at this time, outpatient psychiatric follow-up -- Generalized anxiety disorder Benzodiazepine therapy as clinical indicated, supportive care, continue medical management. -- Chronic diastolic CHF Continue medical management, strict I's/O, monitor urine output every shift blood pressure control, diuresis with Lasix. No acute exacerbation at this time. -- DVT prophylaxis SCD to bilateral lower extremities while in bed -- Advance care planning Disease education data, care plan discussed, diagnoses discussed, prognosis discussed, patient acknowledges understanding agreement with care plan, +30 minutes. --Preventative health care Patient counseled regarding medication compliance, adequate hydration, risk factor reduction. Patient instructed to follow-up with primary care physician for all age and risk factor appropriate screening test. Patient instructed to follow-up with hematology as outpatient. +30 minutes. Closely monitor the patient and adjust management as needed Plan of care reviewed with the patient and his nurse 35 YO Male with NUHA, SCD, HTN, Nicotine Dependence, CHF, Migraine NGUYEN, Schizoaffective Disorder, Chronic Pain Syndrome presents to ED for evaluation. Patient reports "I am having a crisis". Patient states that he has experienced pain all over his body over the past 1 day with persistent symptoms over the same timeframe. Patient states the pain is 9/10, constant, without exacerbating or alleviating factors. Patient transported to [facility] via private vehicle for further care and evaluation of the aforementioned symptoms. The patient was seen and evaluated emergency department. All lab and imaging studies reviewed. Patient found to have clinical symptoms consistent with sickle cell disease crisis. However patient does appear to complain of symptoms of pain out of proportion to exam and interview. Patient treated with IV fluid resuscitation therapy and pain control. Patient denies fever, chills, palpitation, productive cough, recent contact, skin rash, known exposure to COVID-19. No prior admission for review. All medication listed at time of admission has been reconciled. Advanced care planning conducted in ED. CT scan abdomen pelvis ordered and is pending at time of admission. 08/28/2021; patient's hemoglobin improved to 5.8 to 8.0 Received total 2 units of PRBC transfusion, LFTs are trending down Patient still complains of pain Blood pressures improved 08/29/2021 Complains of abdominal pain 08/30/[address] abdomen reviewed No ascites 08/31/2021 Abdominal ultrasound requested Abdomen distended Distended Hospitalist Physical - Constitutional Vitals: Temp Pulse Resp BP Pulse Ox 98.8 F 78 18 116/65 97 08/31/21 22:00 08/31/21 22:00 08/31/21 22:00 08/31/21 22:00 09/01/21 09:50 General appearance: Present: no acute distress, well-nourished HEART Score - HEART Score Troponin: Troponin T < 0.010 ng/mL (0.00-0.029) 08/26/21 14:43 Results - Labs CBC & Chem 7: 09/01/21 05:14 09/01/21 05:14 Labs: Laboratory Last Values WBC 15.6 K/mm3 (4.5-11.0) H 09/01/21 05:14 RBC 2.40 M/mm3 (3.65-5.03) L 09/01/21 05:14 Hgb 7.3 gm/dl (11.8-15.2) L 09/01/21 05:14 Hct 21.8 % (35.5-45.6) L 09/01/21 05:14 MCV 91 fl (84-94) 09/01/21 05:14 MCH 30 pg (28-32) 09/01/21 05:14 MCHC 33 % (32-34) 09/01/21 05:14 RDW 16.9 % (13.2-15.2) H 09/01/21 05:14 Plt Count 255 K/mm3 (140-440) 09/01/21 05:14 Lymph % (Auto) 22.4 % (13.4-35.0) 09/01/21 05:14 Robertson % (Auto) 8.0 % (0.0-7.3) H 09/01/21 05:14 Eos % (Auto) 1.1 % (0.0-4.3) 09/01/21 05:14 Baso % (Auto) 0.4 % (0.0-1.8) 09/01/21 05:14 Lymph # (Auto) 3.5 K/mm3 (1.2-5.4) 09/01/21 05:14 Robertson # (Auto) 1.2 K/mm3 (0.0-0.8) H 09/01/21 05:14 Eos # (Auto) 0.2 K/mm3 (0.0-0.4) 09/01/21 05:14 Baso # (Auto) 0.1 K/mm3 (0.0-0.1) 09/01/21 05:14 Seg Neutrophils % 68.1 % (40.0-70.0) 09/01/21 05:14 Seg Neutrophils # 10.6 K/mm3 (1.8-7.7) H 09/01/21 05:14 Percent Retic 5.62 % (0.78-2.58) H 09/01/21 05:14 Sodium 134 mmol/L (137-145) L 09/01/21 05:14 Potassium 4.5 mmol/L (3.6-5.0) 09/01/21 05:14 Chloride 103.7 mmol/L (98-107) 09/01/21 05:14 Carbon Dioxide 23 mmol/L (22-30) 09/01/21 05:14 Anion Gap 12 mmol/L 09/01/21 05:14 BUN 25 mg/dL (9-20) H 09/01/21 05:14 Creatinine 0.7 mg/dL (0.8-1.3) L 09/01/21 05:14 Estimated GFR > 60 ml/min 09/01/21 05:14 BUN/Creatinine Ratio 36 % 09/01/21 05:14 Glucose 96 mg/dL (75-100) 09/01/21 05:14 POC Glucose 142 mg/dL (70-105) H 08/31/21 20:48 Calcium 9.5 mg/dL (8.4-10.2) 09/01/21 05:14 Magnesium 1.70 mg/dL (1.7-2.3) 08/28/21 04:52 Total Bilirubin 2.00 mg/dL (0.1-1.2) H 09/01/21 05:14 Direct Bilirubin 0.5 mg/dL (0-0.2) H 08/28/21 04:52 Indirect Bilirubin 1.5 mg/dL 08/28/21 04:52 AST 115 units/L (5-40) H 09/01/21 05:14 ALT 123 units/L (7-56) H 09/01/21 05:14 Alkaline Phosphatase 181 units/L (35-129) H 09/01/21 05:14 Total Creatine Kinase 25 units/L (55-170) L 08/26/21 12:16 Troponin T < 0.010 ng/mL (0.00-0.029) 08/26/21 14:43 NT-Pro-B Natriuret Pep 172.9 pg/mL (0-450) 08/26/21 12:16 Total Protein 7.3 g/dL (6.3-8.2) 09/01/21 05:14 Albumin 4.0 g/dL (3.9-5) 09/01/21 05:14 Albumin/Globulin Ratio 1.2 % 09/01/21 05:14 Urine Color Yellow (Yellow) 08/26/21 12:16 Urine Turbidity Clear (Clear) 08/26/21 12:16 Urine pH 5.0 (5.0-7.0) 08/26/21 12:16 Ur Specific [place] 1.015 (1.003-1.030) 08/26/21 12:16 Urine Protein <15 mg/dl mg/dL (Negative) 08/26/21 12:16 Urine Glucose (UA) Negative mg/dL (Negative) 08/26/21 12:16 Urine Ketones Negative mg/dL (Negative) 08/26/21 12:16 Urine Blood Negative (Negative) 08/26/21 12:16 Urine Nitrite Negative (Negative) 08/26/21 12:16 Ur Reducing Substances Not Reportable 08/26/21 12:16 Urine Bilirubin Negative (Negative) 08/26/21 12:16 Urine Ictotest Not Reportable 08/26/21 12:16 Urine Urobilinogen 0.0 mg/dL (<2.0) 08/26/21 12:16 Ur Leukocyte Esterase Negative (Negative) 08/26/21 12:16 Urine WBC (Auto) < 1.0 /HPF (0.0-6.0) 08/26/21 12:16 Urine RBC (Auto) < 1.0 /HPF (0.0-6.0) 08/26/21 12:16 U Epithel Cells (Auto) < 1.0 /HPF (0-13.0) 08/26/21 12:16 Urine Opiates Screen Negative 08/26/21 12:16 Urine Methadone Screen Negative 08/26/21 12:16 Ur Barbiturates Screen Negative 08/26/21 12:16 Ur Phencyclidine Scrn Negative 08/26/21 12:16 Ur Amphetamines Screen Negative 08/26/21 12:16 U Benzodiazepines Scrn Negative 08/26/21 12:16 Urine Cocaine Screen Negative 08/26/21 12:16 U Marijuana (THC) Screen Negative 08/26/21 12:16 Drugs of Abuse Note Disclamer 08/26/21 12:16 Blood Type A POSITIVE 08/26/21 13:02 Antibody Screen Negative 08/26/21 13:02 [place]/IV: Voiding Method Toilet Active Medications - Current Medications Current Medications: Generic Name Dose Route Start Last Admin Trade Name Freq PRN Reason Stop Dose Admin Acetaminophen 650 mg 08/26/21 16:13 Acetaminophen 325 Mg Tab PO Q4H PRN Pain MILD(1-3)/Fever >100.5/NGUYEN Al Hydrox/Mg Hydrox/Simethicone 30 ml 08/26/21 18:46 Alum-Mag Hydroxide-Simethicone [id number]/5ml Oral Liqd 30 Ml PO Q2H PRN Indigestion Albuterol 2.5 mg 08/26/21 16:13 Albuterol 2.5 Mg/3 Ml Nebu IH Q4HRT PRN Shortness Of Breath Benztropine Mesylate 1 mg 08/26/21 22:00 08/31/21 22:03 Benztropine 1 Mg Tab PO 1 mg BID IKE Administration Diphenhydramine HCl 25 mg 08/31/21 12:35 09/01/21 09:34 Diphenhydramine 50 Mg/Ml Vial IV 25 mg Q3H PRN Administration Itching Folic Acid 1 mg 08/27/21 10:00 09/01/21 09:33 Folic Acid 1 Mg Tab PO 1 mg QDAY IKE Administration Furosemide 20 mg 08/27/21 10:00 09/01/21 09:34 Furosemide 20 Mg Tab PO 20 mg QAM IKE Administration Hydromorphone HCl 1 mg 08/31/21 12:35 09/01/21 09:33 Hydromorphone 1 Mg/1 Ml Inj IV 1 mg Q3H PRN Administration Pain , Severe (7-10) Hydroxyurea 500 mg 08/27/21 10:00 09/01/21 09:33 Hydroxyurea 500 Mg Cap PO 500 mg QAM IKE Administration Hydroxyzine Pamoate 25 mg 08/26/21 20:00 09/01/21 09:33 Hydroxyzine Pamoate 25 Mg Cap PO 25 mg TID IKE Administration Sodium Chloride 1,000 mls @ 75 mls/hr 08/26/21 16:15 09/01/21 06:00 Nacl 0.9% 1000 Ml IV 75 mls/hr DIRECT IKE Administration [place] Carbonate 300 mg 08/27/21 10:00 09/01/21 09:34 [place] Carbonate 300 Mg Cap PO 300 mg QAM IKE Administration [place] Carbonate 600 mg 08/26/21 22:00 08/31/21 22:02 [place] Carbonate 300 Mg Cap PO 600 mg QHS IKE Administration Magnesium Hydroxide 30 ml 08/26/21 18:46 Magnesium Hydroxide (Mom) Oral Liqd Udc PO Q12H PRN constipation Metoprolol Tartrate 25 mg 08/26/21 22:00 09/01/21 09:33 Metoprolol Tartrate 25 Mg Tab PO 25 mg BID IKE Administration Ondansetron HCl 4 mg 08/26/21 16:13 Ondansetron 4 Mg/2 Ml Inj IV Q8H PRN Nausea And Vomiting Oxycodone/Acetaminophen 1 tab 08/26/21 16:13 08/30/21 05:18 Oxycodone /Acetaminophen 5-325mg Tab PO 1 tab Q6H PRN Administration Pain, Moderate (4-6) Quetiapine Fumarate 600 mg 08/26/21 22:00 08/31/21 21:33 Quetiapine 200 Mg Tab PO Not Given QHS IKE Sodium Chloride 10 ml 08/26/21 22:00 09/01/21 09:35 Sodium Chloride 0.9% 10 Ml Flush Syringe IV 10 ml BID IKE Administration Sodium Chloride 10 ml 08/26/21 16:13 08/28/21 05:18 Sodium Chloride 0.9% 10 Ml Flush Syringe IV 10 ml PRN PRN Administration LINE FLUSH Ziprasidone 20 mg 08/26/21 18:46 Ziprasidone Mesylate 20 Mg Vial IM Q6H PRN Agitation
--- NOTE | 2021-09-01 11:50 | Discharge Summary ---
Providers - Providers Date of Admission: 08/26/21 16:16 Date of discharge: 09/01/21 Attending physician: BOOM BOWEN Primary care physician: NEREIDA CARTER Hospitalization Condition: Stable Hospital course: -- Sickle cell disease with crisis Check reticulocyte count --Sickle cell anemia; Received 2 units of PRBC transfusion on admission Hemoglobin today at 7.3[5.8 on admission] - SIRS (systemic inflammatory response syndrome) Closely monitor, evaluate and rule out any sepsis --Hypotension/improved significantly improved today blood pressures 125/71 Closely monitor adjust as needed --Cirrhosis liver with abdominal distention /ascites; Patient follows with [facility], for liver transplantation evaluation Stable continue supportive care - Nicotine dependence Smoking cessation counseling done spent 15 minutes Nicotine patch as needed -- Schizoaffective disorder No acute exacerbation at this time, outpatient psychiatric follow-up -- Generalized anxiety disorder Benzodiazepine therapy as clinical indicated, supportive care, continue medical management. -- Chronic diastolic CHF Continue medical management, strict I's/O, monitor urine output every shift blood pressure control, diuresis with Lasix. No acute exacerbation at this time. -- DVT prophylaxis SCD to bilateral lower extremities while in bed -- Advance care planning Disease education data, care plan discussed, diagnoses discussed, prognosis discussed, patient acknowledges understanding agreement with care plan, +30 minutes. --Preventative health care Patient counseled regarding medication compliance, adequate hydration, risk factor reduction. Patient instructed to follow-up with primary care physician for all age and risk factor appropriate screening test. Patient instructed to follow-up with hematology as outpatient. +30 minutes. Closely monitor the patient and adjust management as needed Plan of care reviewed with the patient and his nurse Disposition: 01 HOME / SELF CARE / HOMELESS Final Discharge Diagnosis (Prints w/discharge instructions): Sickle cell disease with crisis. Severe sickle cell anemia requiring 2 units PRBC transfusion. SIRS systemic inflammatory response syndrome. Hypotension/improved. Cirrhosis liver and abdominal distention. Nicotine dependence. Schizoaffective disorder. Generalized anxiety disorder. Chronic diastolic congestive heart failure. DVT prophylaxis Time spent for discharge: 35 minutes Core Measure Documentation - Palliative Care Palliative Care/ Comfort Measures: Not Applicable - Core Measures Any of the following diagnoses?: none Exam - Constitutional Vitals: Temp Pulse Resp BP Pulse Ox 98.8 F 78 18 116/65 97 08/31/21 22:00 08/31/21 22:00 08/31/21 22:00 08/31/21 22:00 09/01/21 09:50 Plan Activity: advance as tolerated Diet: regular Special Instructions: smoking cessation Additional Instructions: If you have worsening symptoms contact MD or go to the nearest emergency room as needed. Advised to see you have sickle cell physician in 5 to 7 days. If you have worsening symptoms contact MD or go to the nearest emergency room as needed. Advised to see your export documents clerk/paper pattern folder at [facility] per schedule. For further evaluation management of your cirrhosis liver Follow up with: NEREIDA CARTER MD [Primary Care Provider] - 7 Days
[2021-09-01] MEDS: BENZTROPINE 1 MG TAB PO SCH (12:16)
== END 2021-09-01 13:57 | disposition home or self-care (01) | DRG 812 ==
LOC: ED 09:23 → 3A 16:16
PROVIDERS: ADMIT Internal Medicine; ATTEND Internal Medicine
PROC: 30233N1 Transfusion of Nonautologous Red Blood Cells into Peripheral Vein, Percutaneous Approach (ICD-10-PCS; principal; 2021-08-27)
DX: D57.00 Hb-SS disease with crisis, unspecified (principal); I50.32 Chronic diastolic (congestive) heart failure; R18.8 Other ascites; I11.0 Hypertensive heart disease with heart failure; F25.9 Schizoaffective disorder, unspecified; G43.909 Migraine, unspecified, not intractable, without status migrainosus; K74.60 Unspecified cirrhosis of liver; I95.9 Hypotension, unspecified; F17.200 Nicotine dependence, unspecified, uncomplicated; Z71.6 Tobacco abuse counseling; F41.1 Generalized anxiety disorder; Z88.6 Allergy status to analgesic agent; Z88.8 Allergy status to other drugs, medicaments and biological substances; Z90.49 Acquired absence of other specified parts of digestive tract; Z88.5 Allergy status to narcotic agent
CPT/HCPCS: 36415; 71045; 71046; 74176; 76700; 80048; 80053; 80076; 80307; 81001; 82550; 82962; 83735; 83880; 84484; 85007; 85014; 85018; 85025; 85045; 85660; 86850; 86900; 86901; 86920; 93005; 94640; 99406; G0378; J0696; J1170; J1200; J1885; J2405; J3010; J7030; J7050; P9016

== ENCOUNTER 2021-09-03 11:39 | Inpatient (IN) | payer MEDICARE ==
--- NOTE | 2021-09-03 15:52 | Emergency Department Report ---
Chief Complaint: Abdominal Pain Stated Complaint: STOMACH PAIN - HPI History of Present Illness: 35 -year-old male with a history of bipolar, sickle cell ,cirrhosis of the liver ,complaining of abdominal pain x2 days. Patient state he has been vomiting times today. Patient currently resides in the room from [facility] was sent over for further evaluation abdominal pain. Patient was recently discharged from the ED for sickle cell crisis on 08/25/2021. Patient is alert and oriented x3. No acute distress noted no ill appearance noticed. Patient denies any homicidal or suicidal ideation at present time. - Exam Vital Signs: Vital Signs 09/03/21 12:31 Temperature 99 F Pulse Rate 84 Respiratory 18 Rate Blood Pressure 118/58 [Left] O2 Sat by Pulse 99 Oximetry MSE screening note: Focused history and physical exam performed. Due to findings the following was ordered: ED Medical Decision Making - Lab Data Result diagrams: 09/03/21 15:57 09/03/21 15:57 ED Disposition for MSE Condition: Stable Referrals: NEREIDA CARTER MD [Primary Care Provider] - 3-5 Days
[2021-09-03 17:07] LABS: Hematocrit 20.3 % (35.5-45.6); Hemoglobin 6.7 gm/dl (11.8-15.2); Mean Corpuscular HGB Conc 33 % (32-34); Mean Corpuscular Volume 91 fl (84-94); Platelet Count 291 K/mm3 (140-440); Red Blood Count 2.23 M/mm3 (3.65-5.03); Red Cell Distribution Width 17.2 % (13.2-15.2)
[2021-09-03] MEDS ORDERED: HYDROmorphone 1 MG/1 ML INJ IV ONE ×3 (17:14→23:06)
[2021-09-03] MEDS ORDERED: SODIUM CHLORIDE 0.9% 1000 ML 1,000 ML IV ONE (17:14)
[2021-09-03] MEDS ORDERED: ONDANSETRON 4 MG/2 ML INJ IV ONE (17:14)
[2021-09-03] MEDS ORDERED: diphenhydrAMINE 50 MG/ML VIAL IV ONE (17:16)
[2021-09-03 17:17] LABS: Alanine Aminotransferase 119 units/L (7-56); Albumin 4.3 g/dL (3.9-5); Blood Urea Nitrogen 24 mg/dL (9-20); Calcium 9.4 mg/dL (8.4-10.2); Hemolysis Index 28
--- NOTE | 2021-09-03 17:29 | Emergency Department Report ---
ED General Adult HPI - General Chief complaint: Abdominal Pain Stated complaint: STOMACH PAIN Time Seen by Provider: 09/03/21 17:14 Source: patient Mode of arrival: Ambulatory Limitations: No Limitations - History of Present Illness Initial comments: The patient presents to the emergency department the chief complaint of abdominal pain has been present for the last 2 days. Patient states that his stomach is also enlarged. Patient states he has a history of sickle cell disease but states this pain is slightly worse than his normal crisis pain. He denies any chest pain or shortness of breath. -: Sudden Location: abdomen Radiation: non-radiation Severity scale (0 -10): 6 Quality: sharp Consistency: constant Improves with: none Worsens with: none Associated Symptoms: denies: fever/chills - Related Data Home Medications Medication Instructions Recorded Confirmed Last Taken Benztropine [Cogentin] 1 mg PO BID 10/20/13 08/26/21 10/20/13 Folic Acid [Folvite] 1 mg PO QDAY 10/20/13 08/26/21 10/20/13 Hydroxyurea [Hydrea] 500 mg PO QAM 10/20/13 08/26/21 10/20/13 Ibuprofen [Motrin 400 MG tab] 400 mg PO Q6H PRN 10/20/13 08/26/21 Unknown [place] Carbonate 300 mg PO QAM 10/20/13 08/26/21 10/19/13 [place] Carbonate 600 mg PO QHS 10/20/13 08/26/21 10/19/13 Mag Hydrox/Aluminum Hyd/Simeth 30 ml PO Q2H PRN 10/20/13 08/26/21 Unknown [Maalox Advanced Suspension] Magnesium Hydroxide [Milk of 30 ml PO Q12H PRN 10/20/13 08/26/21 Unknown Magnesia] Metoprolol [Lopressor TAB] 25 mg PO BID 10/20/13 08/26/21 10/20/13 Ondansetron [Zofran TAB] 4 mg PO Q6HR PRN 10/20/13 08/26/21 Unknown QUEtiapine [SEROquel] 600 mg PO QHS 10/20/13 08/26/21 10/19/13 Ziprasidone Mesylate [Geodon] 20 mg IM Q6H PRN 10/20/13 08/26/21 Unknown chlorproMAZINE [Thorazine] 25 mg PO QAM 10/20/13 08/26/21 10/19/13 hydrOXYzine PAMOATE [Vistaril] 25 mg PO TID 10/20/13 08/26/21 10/20/13 Previous Rx's Medication Instructions Recorded Last Taken Type diphenhydrAMINE [Benadryl CAP] 25 mg PO Q6HR PRN #30 capsule 10/24/13 Unknown Rx oxyCODONE [roxiCODONE] 5 mg PO Q6H PRN #20 tablet 10/24/13 Unknown Rx Furosemide [Lasix TAB] 20 mg PO QAM #30 09/01/21 Unknown Rx oxyCODONE /ACETAMINOPHEN [Percocet 1 tab PO Q8H PRN #15 tablet 09/01/21 Unknown Rx 5/325 mg] Allergies Allergy/AdvReac Type Severity Reaction Status Date / Time acetaminophen [From Tylenol] Allergy Rash Verified 08/31/21 11:45 codeine Allergy Swelling Verified 10/20/13 13:04 ketorolac [From Toradol] Allergy Swelling Verified 08/26/21 14:53 morphine Allergy Swelling Verified 10/20/13 13:04 promethazine [From Phenergan] Allergy Rash Verified 08/26/21 10:15 tramadol Allergy Swelling Verified 10/20/13 13:04 ED Review of Systems ROS: Stated complaint: STOMACH PAIN Other details as noted in HPI Comment: All other systems reviewed and negative Constitutional: denies: chills, fever Eyes: denies: eye pain, eye discharge, vision change ENT: denies: ear pain, throat pain Respiratory: denies: cough, shortness of breath, wheezing Cardiovascular: denies: chest pain, palpitations Endocrine: no symptoms reported Gastrointestinal: abdominal pain. denies: nausea, diarrhea Genitourinary: denies: urgency, dysuria Musculoskeletal: denies: back pain, joint swelling, arthralgia Skin: denies: rash, lesions Neurological: denies: headache, weakness, paresthesias Psychiatric: denies: anxiety, depression Hematological/Lymphatic: denies: easy bleeding, easy bruising ED Past Medical Hx - Past Medical History Hx Hypertension: Yes Hx Heart Attack/AMI: No Hx Congestive Heart Failure: Yes Hx Diabetes: No Hx Deep Vein Thrombosis: No Hx Pulmonary Embolism: No Hx GERD: No Hx Liver Disease: No Hx Renal Disease: No Hx Sickle Cell Disease: Yes Hx Arthritis: No Hx Headaches / Migraines: Yes Hx Seizures: No Hx Kidney Stones: No Hx Psychiatric Treatment: Yes (schizoaffective disorder) Hx Asthma: No Hx COPD: No Hx Tuberculosis: No Hx Dementia: No Hx HIV: No - Surgical History Hx Coronary Stent: No Hx Open Heart Surgery: No Hx Pacemaker: No Hx Internal Defibrillator: No Hx Cholecystectomy: Yes Hx Appendectomy: No Hx Breast Surgery: No - Social History Smoking Status: Current Every Day Smoker - Medications Home Medications: Home Medications Medication Instructions Recorded Confirmed Last Taken Type Benztropine [Cogentin] 1 mg PO BID 10/20/13 08/26/21 10/20/13 History Folic Acid [Folvite] 1 mg PO QDAY 10/20/13 08/26/21 10/20/13 History Hydroxyurea [Hydrea] 500 mg PO QAM 10/20/13 08/26/21 10/20/13 History Ibuprofen [Motrin 400 MG tab] 400 mg PO Q6H PRN 10/20/13 08/26/21 Unknown History [place] Carbonate 300 mg PO QAM 10/20/13 08/26/21 10/19/13 History [place] Carbonate 600 mg PO QHS 10/20/13 08/26/21 10/19/13 History Mag Hydrox/Aluminum Hyd/Simeth 30 ml PO Q2H PRN 10/20/13 08/26/21 Unknown History [Maalox Advanced Suspension] Magnesium Hydroxide [Milk of 30 ml PO Q12H PRN 10/20/13 08/26/21 Unknown History Magnesia] Metoprolol [Lopressor TAB] 25 mg PO BID 10/20/13 08/26/21 10/20/13 History Ondansetron [Zofran TAB] 4 mg PO Q6HR PRN 10/20/13 08/26/21 Unknown History QUEtiapine [SEROquel] 600 mg PO QHS 10/20/13 08/26/21 10/19/13 History Ziprasidone Mesylate [Geodon] 20 mg IM Q6H PRN 10/20/13 08/26/21 Unknown History chlorproMAZINE [Thorazine] 25 mg PO QAM 10/20/13 08/26/21 10/19/13 History hydrOXYzine PAMOATE [Vistaril] 25 mg PO TID 10/20/13 08/26/21 10/20/13 History diphenhydrAMINE [Benadryl CAP] 25 mg PO Q6HR PRN #30 capsule 10/24/13 08/26/21 Unknown Rx oxyCODONE [roxiCODONE] 5 mg PO Q6H PRN #20 tablet 10/24/13 08/26/21 Unknown Rx Furosemide [Lasix TAB] 20 mg PO QAM #30 09/01/21 Unknown Rx oxyCODONE /ACETAMINOPHEN [Percocet 1 tab PO Q8H PRN #15 tablet 09/01/21 Unknown Rx 5/325 mg] ED Physical Exam - General Limitations: No Limitations General appearance: alert, in no apparent distress - Head Head exam: Present: atraumatic, normocephalic - Eye Eye exam: Present: normal appearance - ENT ENT exam: Present: mucous membranes dry - Neck Neck exam: Present: normal inspection - Respiratory Respiratory exam: Present: normal lung sounds bilaterally. Absent: respiratory distress - Cardiovascular Cardiovascular Exam: Present: regular rate, normal rhythm. Absent: systolic murmur, diastolic murmur, rubs, gallop - GI/Abdominal GI/Abdominal exam: Present: soft, distended, tenderness, normal bowel sounds - Rectal Rectal exam: Present: deferred - Extremities Exam Extremities exam: Present: normal inspection - Back Exam Back exam: Present: normal inspection - Neurological Exam Neurological exam: Present: alert, oriented X3, CN II-XII intact. Absent: motor sensory deficit - Psychiatric Psychiatric exam: Present: normal affect, normal mood - Skin Skin exam: Present: warm, dry, intact, normal color. Absent: rash ED Course Vital Signs 09/03/21 09/03/21 09/03/21 12:31 12:42 20:54 Temperature 99 F Pulse Rate 84 100 H 90 Respiratory 18 18 18 Rate Blood Pressure 112/74 Blood Pressure 118/58 131/80 [Left] O2 Sat by Pulse 99 99 Oximetry ED Medical Decision Making - Lab Data Result diagrams: 09/03/21 15:57 09/03/21 15:57 Lab Results 09/03/21 09/03/21 09/03/21 Range/Units 15:57 15:57 15:57 WBC 19.4 H (4.5-11.0) K/mm3 RBC 2.23 L (3.65-5.03) M/mm3 Hgb 6.7 L (11.8-15.2) gm/dl Hct 20.3 L (35.5-45.6) % MCV 91 (84-94) fl MCH 30 (28-32) pg MCHC 33 (32-34) % RDW 17.2 H (13.2-15.2) % Plt Count 291 (140-440) K/mm3 Percent Retic 3.56 H (0.78-2.58) % Sodium 133 L (137-145) mmol/L Potassium 4.5 (3.6-5.0) mmol/L Chloride 103.9 (98-107) mmol/L Carbon Dioxide 20 L (22-30) mmol/L Anion Gap 14 mmol/L BUN 24 H (9-20) mg/dL Creatinine 0.6 L (0.8-1.3) mg/dL Estimated GFR > 60 ml/min BUN/Creatinine Ratio 40 % Glucose 92 (75-100) mg/dL Calcium 9.4 (8.4-10.2) mg/dL Total Bilirubin 1.80 H (0.1-1.2) mg/dL AST 113 H (5-40) units/L ALT 119 H (7-56) units/L Alkaline Phosphatase 209 H (35-129) units/L Total Protein 7.2 (6.3-8.2) g/dL Albumin 4.3 (3.9-5) g/dL Albumin/Globulin Ratio 1.5 % Lipase 24 (13-60) units/L - Radiology Data Radiology results: report reviewed - Medical Decision Making Elevated white count is likely secondary to acute stress reaction Patient received 3 doses of Dilaudid to no avail Critical care attestation.: If time is entered above; I have spent that time in minutes in the direct care of this critically ill patient, excluding procedure time. ED Disposition Clinical Impression: Sickle cell crisis Disposition: ADMITTED INPATIENT Is pt being admited?: Yes Does the pt Need Aspirin: No Condition: Fair Referrals: NEREIDA CARTER MD [Primary Care Provider] - 3-5 Days
[2021-09-03 17:37] LABS: BUN/Creatinine Ratio 40
--- NOTE | 2021-09-03 18:08 | Cat Scan Report ---
CT ABDOMEN AND PELVIS WITH CONTRAST HISTORY: ab pain/distended abdomen 80ml of [id number]. COMPARISON: CT abdomen/pelvis from 08/26/2021 TECHNIQUE: CT images of the abdomen and pelvis were obtained following administration of intravenous contrast. All CT scans at this location are performed using CT dose reduction for ALARA by means of automated exposure control. CONTRAST: 80 ml of intravenous contrast administered. FINDINGS: Lungs/bones: Lung bases are clear. Mild cardiomegaly. Bones are diffusely sclerotic with no acute os seous abnormality or malalignment. Abdomen/pelvis: There is hepatomegaly with splenic auto infarction change. Tiny simple cyst in the l eft lobe of the liver. Gallbladder is surgically absent. The pancreas, adrenals, kidneys, and proximal GI tract appear unremarkable. Urinary bladder is distended with no internal stone disease or mass. Prostate is unremarkable. No pel anna free fluid. No acute colonic abnormality identified. IMPRESSION: 1. Stable exam with sequelae of sickle cell disease again noted. Nothing acute. Signer Name: Brian Boyer MD Signed: 09/03/2021 6:03 PM Workstation Name: [id number]
[2021-09-03] MEDS ORDERED: MORPHINE 4 MG/1 ML INJ IV PRN (23:29)
[2021-09-03] MEDS ORDERED: ACETAMINOPHEN 325 MG TAB PO PRN (23:29)
[2021-09-03] MEDS ORDERED: ONDANSETRON 4 MG/2 ML INJ IV PRN (23:29)
[2021-09-03] MEDS ORDERED: MORPHINE 2 MG/1 ML INJ IV PRN (23:29)
[2021-09-03] MEDS ORDERED: SUCCINYLCHOLINE CHLORIDE 200 MG/10 ML INJ MDV ONE (23:32)
[2021-09-03] MEDS ORDERED: diphenhydrAMINE 25 MG CAP PO PRN (23:32)
[2021-09-03] MEDS ORDERED: ETOMIDATE 20 MG/10 ML INJ IV ONE (23:32)
[2021-09-03] MEDS ORDERED: oxyCODONE 5 MG TAB PO PRN (23:32)
[2021-09-03] MEDS ORDERED: MAGNESIUM HYDROXIDE (MOM) ORAL LIQD UDC PO PRN (23:32)
[2021-09-03] MEDS ORDERED: ROCURONIUM 50 MG/5 ML INJ IV ONE (23:33)
--- NOTE | 2021-09-03 23:39 | History and Physical Report ---
History of Present Illness Date of examination: 09/03/21 Date of admission: 09/03/21 Chief complaint: Abdominal pain Stomach pain History of present illness: 35 years old male with history of sickle cell disease with crisis was brought to the emergency department the chief complaint of abdominal pain has been present for the last 2 days. Patient states that his stomach is also enlarged. Patient states he has a history of sickle cell disease but states this pain is slightly worse than his normal crisis pain. He denies any chest pain or shortness of breath. In the emergency room patient is found to have WBC of 19.4, hemoglobin 6.7 and hematocrit 20.3, percent reticulocyte 3.56 Past History Past Medical History: heart failure, other (Sickle cell disease, schizoaffective disorder, headache and migraine) Past Surgical History: No surgical history Social history: smoking Family history: hypertension Medications and Allergies Allergies Allergy/AdvReac Type Severity Reaction Status Date / Time acetaminophen [From Tylenol] Allergy Rash Verified 08/31/21 11:45 codeine Allergy Swelling Verified 10/20/13 13:04 ketorolac [From Toradol] Allergy Swelling Verified 08/26/21 14:53 morphine Allergy Swelling Verified 10/20/13 13:04 promethazine [From Phenergan] Allergy Rash Verified 08/26/21 10:15 tramadol Allergy Swelling Verified 10/20/13 13:04 Home Medications Medication Instructions Recorded Confirmed Last Taken Type Benztropine [Cogentin] 1 mg PO BID 10/20/13 08/26/21 10/20/13 History Folic Acid [Folvite] 1 mg PO QDAY 10/20/13 08/26/21 10/20/13 History Hydroxyurea [Hydrea] 500 mg PO QAM 10/20/13 08/26/21 10/20/13 History Ibuprofen [Motrin 400 MG tab] 400 mg PO Q6H PRN 10/20/13 08/26/21 Unknown History [place] Carbonate 300 mg PO QAM 10/20/13 08/26/21 10/19/13 History [place] Carbonate 600 mg PO QHS 10/20/13 08/26/21 10/19/13 History Mag Hydrox/Aluminum Hyd/Simeth 30 ml PO Q2H PRN 10/20/13 08/26/21 Unknown History [Maalox Advanced Suspension] Magnesium Hydroxide [Milk of 30 ml PO Q12H PRN 10/20/13 08/26/21 Unknown History Magnesia] Metoprolol [Lopressor TAB] 25 mg PO BID 10/20/13 08/26/21 10/20/13 History Ondansetron [Zofran TAB] 4 mg PO Q6HR PRN 10/20/13 08/26/21 Unknown History QUEtiapine [SEROquel] 600 mg PO QHS 10/20/13 08/26/21 10/19/13 History Ziprasidone Mesylate [Geodon] 20 mg IM Q6H PRN 10/20/13 08/26/21 Unknown History chlorproMAZINE [Thorazine] 25 mg PO QAM 10/20/13 08/26/21 10/19/13 History hydrOXYzine PAMOATE [Vistaril] 25 mg PO TID 10/20/13 08/26/21 10/20/13 History diphenhydrAMINE [Benadryl CAP] 25 mg PO Q6HR PRN #30 capsule 10/24/13 08/26/21 Unknown Rx oxyCODONE [roxiCODONE] 5 mg PO Q6H PRN #20 tablet 10/24/13 08/26/21 Unknown Rx Furosemide [Lasix TAB] 20 mg PO QAM #30 09/01/21 Unknown Rx oxyCODONE /ACETAMINOPHEN [Percocet 1 tab PO Q8H PRN #15 tablet 09/01/21 Unknown Rx 5/325 mg] Active Meds: Active Medications Acetaminophen (Acetaminophen 325 Mg Tab) 650 mg PO Q4H PRN PRN Reason: Pain MILD(1-3)/Fever >100.5/NGUYEN Albuterol/Ipratropium (Ipratropium/Albuterol Sulfate 3 Ml Ampul.Neb) 1 ampul IH Q6HRT IKE Famotidine (Famotidine 20 Mg Tab) 20 mg PO BID IKE Hydromorphone HCl (Hydromorphone 0.5 Mg/0.5 Ml Inj) 0.25 mg IV Q3H PRN PRN Reason: Pain, Moderate (4-6) Hydromorphone HCl (Hydromorphone 0.5 Mg/0.5 Ml Inj) 0.5 mg IV Q3H PRN PRN Reason: Pain , Severe (7-10) Dextrose/Sodium Chloride (D5/0.45ns) 1,000 mls @ 100 mls/hr IV DIRECT IKE Morphine Sulfate (Morphine 2 Mg/1 Ml Inj) 2 mg IV Q4H PRN PRN Reason: Pain, Moderate (4-6) Morphine Sulfate (Morphine 4 Mg/1 Ml Inj) 4 mg IV Q4H PRN PRN Reason: Pain , Severe (7-10) Ondansetron HCl (Ondansetron 4 Mg/2 Ml Inj) 4 mg IV Q8H PRN PRN Reason: Nausea And Vomiting Sodium Chloride (Sodium Chloride 0.9% 10 Ml Flush Syringe) 10 ml IV BID IKE Sodium Chloride (Sodium Chloride 0.9% 10 Ml Flush Syringe) 10 ml IV PRN PRN PRN Reason: LINE FLUSH Review of Systems All systems: negative Constitutional: weakness, malaise Gastrointestinal: abdominal pain, other (Stomach pain) Exam - Constitutional Vitals: Temp Pulse Resp BP Pulse Ox 99 F 90 18 131/80 99 09/03/21 12:31 09/03/21 20:54 09/03/21 20:54 09/03/21 20:54 09/03/21 20:54 General appearance: Present: no acute distress, well-nourished - EENT Eyes: Present: PERRL ENT: hearing intact, clear oral mucosa - Neck Neck: Present: supple, normal ROM - Respiratory Respiratory effort: normal Respiratory: bilateral: CTA - Cardiovascular Heart Sounds: Present: S1 & S2. Absent: rub, click - Extremities Extremities: pulses symmetrical, No edema Peripheral Pulses: within normal limits - Abdominal General gastrointestinal: Present: soft, non-tender, non-distended, normal bowel sounds Male genitourinary: Present: normal - Integumentary Integumentary: Present: clear, warm, dry - Musculoskeletal Musculoskeletal: gait normal, strength equal bilaterally - Psychiatric Psychiatric: appropriate mood/affect, intact judgment & insight - Neurologic Neurologic: CNII-XII intact, moves all extremities Results - Labs CBC & Chem 7: 09/03/21 15:57 09/03/21 15:57 Labs: Laboratory Last Values WBC 19.4 K/mm3 (4.5-11.0) H 09/03/21 15:57 RBC 2.23 M/mm3 (3.65-5.03) L 09/03/21 15:57 Hgb 6.7 gm/dl (11.8-15.2) L 09/03/21 15:57 Hct 20.3 % (35.5-45.6) L 09/03/21 15:57 MCV 91 fl (84-94) 09/03/21 15:57 MCH 30 pg (28-32) 09/03/21 15:57 MCHC 33 % (32-34) 09/03/21 15:57 RDW 17.2 % (13.2-15.2) H 09/03/21 15:57 Plt Count 291 K/mm3 (140-440) 09/03/21 15:57 Percent Retic 3.56 % (0.78-2.58) H 09/03/21 15:57 Sodium 133 mmol/L (137-145) L 09/03/21 15:57 Potassium 4.5 mmol/L (3.6-5.0) 09/03/21 15:57 Chloride 103.9 mmol/L (98-107) 09/03/21 15:57 Carbon Dioxide 20 mmol/L (22-30) L 09/03/21 15:57 Anion Gap 14 mmol/L 09/03/21 15:57 BUN 24 mg/dL (9-20) H 09/03/21 15:57 Creatinine 0.6 mg/dL (0.8-1.3) L 09/03/21 15:57 Estimated GFR > 60 ml/min 09/03/21 15:57 BUN/Creatinine Ratio 40 % 09/03/21 15:57 Glucose 92 mg/dL (75-100) 09/03/21 15:57 Calcium 9.4 mg/dL (8.4-10.2) 09/03/21 15:57 Total Bilirubin 1.80 mg/dL (0.1-1.2) H 09/03/21 15:57 AST 113 units/L (5-40) H 09/03/21 15:57 ALT 119 units/L (7-56) H 09/03/21 15:57 Alkaline Phosphatase 209 units/L (35-129) H 09/03/21 15:57 Total Protein 7.2 g/dL (6.3-8.2) 09/03/21 15:57 Albumin 4.3 g/dL (3.9-5) 09/03/21 15:57 Albumin/Globulin Ratio 1.5 % 09/03/21 15:57 Lipase 24 units/L (13-60) 09/03/21 15:57 - Imaging and Cardiology CT scan - abdomen: report reviewed Assessment and Plan VTE prophylaxis?: Mechanical Plan of care discussed with patient/family: Yes - Patient Problems (1) Sickle cell disease with crisis Current Visit: Yes Status: Acute Plan to address problem: Admit the patient to the medical floor. Dilaudid 0.5 mg IV every 3 hours. Folic acid 1 mg p.o. daily. Hydroxyurea 500 mg p.o. every morning. Recheck CBC in the morning (2) Diastolic CHF Current Visit: No Status: Acute Qualifiers: Plan to address problem: Stable. We will continue the home medication. Avoid fluid overload. Maintain input output. Daily weight (3) Leukocytosis Onset Date: 08/05/13 Current Visit: No Status: Acute Plan to address problem: Rocephin 2 g IV daily. We will do the blood culture. Recheck CBC in the morning (4) Schizoaffective disorder Current Visit: No Status: Acute Qualifiers: Plan to address problem: [place] 300 mg p.o. every morning and 600 mg p.o. nightly. Outpatient follow-up with psych (5) Anemia Current Visit: Yes Status: Acute Plan to address problem: Patient has sickle cell disease with crisis. Folic acid 1 mg p.o. daily. Recheck CBC in the morning if needed will transfuse the patient (6) DVT prophylaxis Current Visit: No Status: Acute Plan to address problem: SCD for DVT prophylaxis. Pepcid 20 mg p.o. twice daily for GI prophylaxis. Patient is a full code
[2021-09-03] MEDS ORDERED: D5W/0.45% NACL 1,000 ML IV SCH (23:45)
[2021-09-04] MEDS ORDERED: IPRATROPIUM/ALBUTEROL SULFATE 3 ML AMPUL.NEB IH SCH (02:00)
[2021-09-04] MEDS: HYDROmorphone 0.5 MG/0.5 ML INJ IV PRN ×8 (02:54→21:45)
[2021-09-04] MEDS: cefTRIAXone/NS 2 GM/100 ML 2 GM/100 ML BAG IV SCH ×2 (04:10→11:55)
[2021-09-04 04:19] LABS: Bilirubin,Urine Negative (Negative); Blood,Urine Negative (Negative); Color,Urine Yellow (Yellow); Urobilinogen,Urine 0.2 mg/dL (<2.0)
[2021-09-04 04:22] LABS: RBC,Urine < 1.0 /HPF (0.0-6.0)
[2021-09-04 06:42] LABS: Basophils % (Auto) 0.2 % (0.0-1.8); Eosinophils # (Auto) 0.2 K/mm3 (0.0-0.4); Eosinophils % (Auto) 0.9 % (0.0-4.3); Hemoglobin 6.3 gm/dl (11.8-15.2); Lymphocytes # (Auto) 4.3 K/mm3 (1.2-5.4); Lymphocytes % (Auto) 22.6 % (13.4-35.0); Mean Corpuscular HGB Conc 33 % (32-34); Mean Corpuscular Volume 93 fl (84-94); Monocytes # (Auto) 2.4 K/mm3 (0.0-0.8); Monocytes % (Auto) 12.7 % (0.0-7.3); Platelet Count 321 K/mm3 (140-440); Red Blood Count 2.05 M/mm3 (3.65-5.03); Red Cell Distribution Width 17.6 % (13.2-15.2)
[2021-09-04 06:47] LABS: Hematocrit 19.1 % (35.5-45.6)
[2021-09-04 07:20] LABS: Blood Urea Nitrogen 18 mg/dL (9-20); Calcium 8.9 mg/dL (8.4-10.2); Hemolysis Index 7
[2021-09-04 07:22] LABS: BUN/Creatinine Ratio 36
[2021-09-04] MEDS ORDERED: hydrOXYzine PAMOATE 25 MG CAP PO PRN (08:00)
--- NOTE | 2021-09-04 08:10 | Progress Note ---
Assessment and Plan Assessment and plan: -- Sickle cell disease with crisis Admit the patient to the medical floor. Dilaudid 0.5 mg IV ,Folic acid 1 mg p.o. daily. Hydroxyurea 500 mg p.o. every morning. Recheck CBC in the morning --Sickle cell anemia ;Hb 6.7-6.3 Patient received 3 units of PRBC during recent admission few days ago Will transfuse 2 units of PRBC today, closely monitor H&H Transfuse additional PRBC if needed Discussed with blood bank, okayed --diastolic CHF Stable. We will continue the home medication. Avoid fluid overload. Maintain input output. Daily weight 1 dose of Lasix after each transfusion --Chronic leukocytosis Rocephin 2 g IV daily. We will do the blood culture. Recheck CBC in the morning --Schizoaffective disorder Continue [place] 300 mg p.o. every morning and 600 mg p.o. nightly. Outpatient follow-up with psych --Severe /anemia Patient has sickle cell disease with crisis. Folic acid 1 mg p.o. daily. Recheck CBC in the morning if needed will transfuse the patient --DVT prophylaxis SCD for DVT prophylaxis. Pepcid 20 mg p.o. twice daily for GI prophylaxis. Patient is a full code Recheck H&H after transfusion and discharge if stable and patient is symptom- free Care reviewed with the patient and nurse 09/04: Hb 6.3, requested 2 units of PRBC Discussed with Ms. Riddhi Mason nurse, she okayed the request for 2 units PRBC Transfused today per protocol and check posttransfusion H&H, and discharge home if reasonable level History Interval history: I have seen and examined the patient at the bedside Patient's chart and medications reviewed Patient was recently discharged Sickle cell crisis and sickle cell anemia, Hb this morning 6.3 Patient complains of generalized body pains and depressed Vital signs reviewed, afebrile Hospitalist Physical - Constitutional Vitals: Temp Pulse Resp BP Pulse Ox 98.1 F 83 18 114/59 97 09/04/21 04:20 09/04/21 04:20 09/04/21 04:20 09/04/21 04:20 09/04/21 06:41 General appearance: Present: mild distress (Due to pain), well-nourished - EENT Eyes: Present: PERRL, EOM intact - Neck Neck: Present: supple, normal ROM - Respiratory Respiratory effort: normal Respiratory: bilateral: diminished, negative: rales, rhonchi, wheezing - Cardiovascular Rhythm: regular Heart Sounds: Present: S1 & S2 - Extremities Extremities: no ischemia, No edema - Abdominal General gastrointestinal: soft, non-tender, non-distended, normal bowel sounds - Integumentary Integumentary: Present: clear, warm - Psychiatric Psychiatric: appropriate mood/affect, cooperative - Neurologic Neurologic: CNII-XII intact, moves all extremities Results - Labs CBC & Chem 7: 09/04/21 06:11 09/04/21 06:11 Labs: Laboratory Last Values WBC 19.1 K/mm3 (4.5-11.0) H 09/04/21 06:11 RBC 2.05 M/mm3 (3.65-5.03) L 09/04/21 06:11 Hgb 6.3 gm/dl (11.8-15.2) L 09/04/21 06:11 Hct 19.1 % (35.5-45.6) L* 09/04/21 06:11 MCV 93 fl (84-94) 09/04/21 06:11 MCH 31 pg (28-32) 09/04/21 06:11 MCHC 33 % (32-34) 09/04/21 06:11 RDW 17.6 % (13.2-15.2) H 09/04/21 06:11 Plt Count 321 K/mm3 (140-440) 09/04/21 06:11 Lymph % (Auto) 22.6 % (13.4-35.0) 09/04/21 06:11 [place] % (Auto) 12.7 % (0.0-7.3) H 09/04/21 06:11 Eos % (Auto) 0.9 % (0.0-4.3) 09/04/21 06:11 Baso % (Auto) 0.2 % (0.0-1.8) 09/04/21 06:11 Lymph # (Auto) 4.3 K/mm3 (1.2-5.4) 09/04/21 06:11 [place] # (Auto) 2.4 K/mm3 (0.0-0.8) H 09/04/21 06:11 Eos # (Auto) 0.2 K/mm3 (0.0-0.4) 09/04/21 06:11 Baso # (Auto) 0.0 K/mm3 (0.0-0.1) 09/04/21 06:11 Seg Neutrophils % 63.6 % (40.0-70.0) 09/04/21 06:11 Seg Neutrophils # 12.2 K/mm3 (1.8-7.7) H 09/04/21 06:11 Percent Retic 3.56 % (0.78-2.58) H 09/03/21 15:57 Sodium 136 mmol/L (137-145) L 09/04/21 06:11 Potassium 4.2 mmol/L (3.6-5.0) 09/04/21 06:11 Chloride 105.8 mmol/L (98-107) 09/04/21 06:11 Carbon Dioxide 20 mmol/L (22-30) L 09/04/21 06:11 Anion Gap 14 mmol/L 09/04/21 06:11 BUN 18 mg/dL (9-20) 09/04/21 06:11 Creatinine 0.5 mg/dL (0.8-1.3) L 09/04/21 06:11 Estimated GFR > 60 ml/min 09/04/21 06:11 BUN/Creatinine Ratio 36 % 09/04/21 06:11 Glucose 104 mg/dL (75-100) H 09/04/21 06:11 Calcium 8.9 mg/dL (8.4-10.2) 09/04/21 06:11 Total Bilirubin 1.80 mg/dL (0.1-1.2) H 09/03/21 15:57 AST 113 units/L (5-40) H 09/03/21 15:57 ALT 119 units/L (7-56) H 09/03/21 15:57 Alkaline Phosphatase 209 units/L (35-129) H 09/03/21 15:57 Total Protein 7.2 g/dL (6.3-8.2) 09/03/21 15:57 Albumin 4.3 g/dL (3.9-5) 09/03/21 15:57 Albumin/Globulin Ratio 1.5 % 09/03/21 15:57 Lipase 24 units/L (13-60) 09/03/21 15:57 Urine Color Yellow (Yellow) 09/04/21 04:06 Urine Turbidity Clear (Clear) 09/04/21 04:06 Urine pH 6.0 (5.0-7.0) 09/04/21 04:06 Ur Specific [place] 1.005 (1.003-1.030) 09/04/21 04:06 Urine Protein 30 mg/dl mg/dL (Negative) 09/04/21 04:06 Urine Glucose (UA) Negative mg/dL (Negative) 09/04/21 04:06 Urine Ketones Negative mg/dL (Negative) 09/04/21 04:06 Urine Blood Negative (Negative) 09/04/21 04:06 Urine Nitrite Negative (Negative) 09/04/21 04:06 Urine Bilirubin Negative (Negative) 09/04/21 04:06 Urine Urobilinogen 0.2 mg/dL (<2.0) 09/04/21 04:06 Ur Leukocyte Esterase Negative (Negative) 09/04/21 04:06 Urine WBC (Auto) 1.0 /HPF (0.0-6.0) 09/04/21 04:06 Urine RBC (Auto) < 1.0 /HPF (0.0-6.0) 09/04/21 04:06 Active Medications - Current Medications Current Medications: Generic Name Dose Route Start Last Admin Trade Name Freq PRN Reason Stop Dose Admin Benztropine Mesylate 1 mg 09/04/21 10:00 Benztropine 1 Mg Tab PO BID IKE Chlorpromazine HCl 25 mg 09/04/21 10:00 Chlorpromazine 25 Mg Tab PO QAM IKE Diphenhydramine HCl 25 mg 09/03/21 23:32 09/04/21 02:55 Diphenhydramine 25 Mg Cap PO 25 mg Q6H PRN Administration Itching Famotidine 20 mg 09/04/21 10:00 Famotidine 20 Mg Tab PO BID IKE Folic Acid 1 mg 09/04/21 10:00 Folic Acid 1 Mg Tab PO QDAY IKE Furosemide 20 mg 09/04/21 10:00 Furosemide 20 Mg Tab PO QAM IKE Hydromorphone HCl 0.25 mg 09/03/21 23:29 Hydromorphone 0.5 Mg/0.5 Ml Inj IV Q3H PRN Pain, Moderate (4-6) Hydromorphone HCl 0.5 mg 09/03/21 23:29 09/04/21 05:53 Hydromorphone 0.5 Mg/0.5 Ml Inj IV 0.5 mg Q3H PRN Administration Pain , Severe (7-10) Hydroxyurea 500 mg 09/04/21 10:00 Hydroxyurea 500 Mg Cap PO QAM [facility] Hydroxyzine Pamoate 25 mg 09/04/21 08:00 Hydroxyzine Pamoate 25 Mg Cap PO TID PRN Anxiety Ceftriaxone Sodium 2 gm in 100 mls @ 200 mls/hr 09/03/21 23:45 09/04/21 04:10 Rocephin/Ns 2 Gm/100 Ml IV 200 mls/hr Q24HR [facility] Administration Protocol Sodium Chloride 500 mls @ 0 mls/hr 09/04/21 07:56 Nacl 0.9% 500 Ml IV 09/04/21 07:57 ONCE ONE As Directed [place] Carbonate 300 mg 09/04/21 10:00 [place] Carbonate 300 Mg Cap PO QAM [facility] Magnesium Hydroxide 30 ml 09/03/21 23:32 Magnesium Hydroxide (Mom) Oral Liqd Udc PO Q12H PRN constipation Metoprolol Tartrate 25 mg 09/04/21 08:00 Metoprolol Tartrate 25 Mg Tab PO BID@0800,1700 [facility] Ondansetron HCl 4 mg 09/03/21 23:29 Ondansetron 4 Mg/2 Ml Inj IV Q8H PRN Nausea And Vomiting Oxycodone HCl 5 mg 09/03/21 23:32 Oxycodone 5 Mg Tab PO Q6H PRN PAIN (4-6) Quetiapine Fumarate 600 mg 09/04/21 22:00 Quetiapine 200 Mg Tab PO QHS [facility] Sodium Chloride 10 ml 09/04/21 10:00 Sodium Chloride 0.9% 10 Ml Flush Syringe IV BID IKE Sodium Chloride 10 ml 09/03/21 23:29 09/04/21 05:53 Sodium Chloride 0.9% 10 Ml Flush Syringe IV 10 ml PRN PRN Administration LINE FLUSH
[2021-09-04] MEDS ORDERED: SODIUM CHLORIDE 0.9% 500 ML 500 ML IV SCH (09:00)
[2021-09-04] MEDS: FAMOTIDINE 20 MG TAB PO SCH ×2 (11:55→21:45)
[2021-09-04] MEDS: FUROSEMIDE 20 MG TAB PO SCH (11:55)
[2021-09-04] MEDS: METOPROLOL TARTRATE 25 MG TAB PO SCH ×2 (11:55→16:47)
[2021-09-04] MEDS: FOLIC ACID 1 MG TAB PO SCH (11:57)
[2021-09-04] MEDS: chlorproMAZINE 25 MG TAB PO SCH (11:58)
[2021-09-04] MEDS: LITHIUM CARBONATE 300 MG CAP PO SCH (11:58)
[2021-09-04] MEDS: BENZTROPINE 1 MG TAB PO SCH ×2 (11:59→21:44)
--- NOTE | 2021-09-04 14:58 | Event Note ---
Date: 09/04/21 I ordered 2 units of PRBC for transfusion this morning around 7:50 AM, also give instructions to the nurse to transfuse immediately Even spoke to the blood bank nurse/in charge Ms. Plata this morning, no blood was ready till now, I called about the blood bank and required About the availability of 2 units of PRBC for transfusion, Ms. Plata reports that the morning sample was hemolyzed the director inbound sales was supposed to repeat drawing and testing the blood which was not done. she promised that she would take care of this right now. I spoke with the patient's nurse Ms. Castellanos[[id number]] and encouraged her to pursue the lab for the blood transfusion and try to give before in the end of the shift if possible. She verbalized understanding
[2021-09-04] MEDS: QUEtiapine 200 MG TAB PO SCH ×2 (21:44→21:47)
[2021-09-05] MEDS: HYDROmorphone 0.5 MG/0.5 ML INJ IV PRN ×3 (02:54→13:19)
--- NOTE | 2021-09-05 07:51 | Progress Note ---
Assessment and Plan Assessment and plan: -- Sickle cell disease with crisis Continue IV fluids, pain medications blood transfusion Dilaudid 0.5 mg IV ,Folic acid 1 mg p.o. daily. Hydroxyurea 500 mg p.o. every morning. Recheck CBC in the morning --Sickle cell anemia ;Hb 6.7-6.3-6.6 today Unable to transfuse yesterday due to [place]/blood bank delays Check with blood bank nurse, will send 2 units of blood to the floor today Patient received 3 units of PRBC during recent admission few days ago Will transfuse 2 units of PRBC today, closely monitor H&H Transfuse additional PRBC if needed Discussed with blood bank, okayed --diastolic CHF Stable. We will continue the home medication. Avoid fluid overload. Maintain input output. Daily weight 1 dose of Lasix after each transfusion --Chronic leukocytosis/trending down WBC 19.1 -15.0, monitor WBC Rocephin 2 g IV daily. We will do the blood culture. --Schizoaffective disorder Continue [place] 300 mg p.o. every morning and 600 mg p.o. nightly. Outpatient follow-up with psych --Severe /anemia Patient has sickle cell disease with crisis. Folic acid 1 mg p.o. daily. Recheck CBC in the morning if needed will transfuse the patient --DVT prophylaxis SCD for DVT prophylaxis. Pepcid 20 mg p.o. twice daily for GI prophylaxis. Patient is a full code Recheck H&H after transfusion and discharge if stable and patient is symptom- free Care reviewed with the patient and nurse 09/04: Hb 6.3, requested 2 units of PRBC Discussed with Ms. Riddhi Mason nurse, she okayed the request for 2 units P RBC Transfused today per protocol and check posttransfusion H&H, and discharge home if reasonable level 09/05; hopefully patient will receive 2 units PRBC today, will check posttransfusion H&H If reasonable level and if patient is symptom-free we may discharge the patient this afternoon/evening History Interval history: I have seen and examined the patient at the bedside Patient's chart and medications reviewed Patient had hemoglobin of 6.3 yesterday, requested 2 units of PRBC transfusion We have injected the blood bank charge needs However for some unknown reasons blood was not sent to the floor I discussed with the nurse today Reports that there were some delays with the [place] We will get 2 units PRBC today Hospitalist Physical - Constitutional Vitals: Temp Pulse Resp BP Pulse Ox 98.0 F 66 18 103/59 98 09/05/21 04:41 09/05/21 04:41 09/05/21 04:41 09/05/21 04:41 09/05/21 04:41 General appearance: Present: mild distress (Due to pain), well-nourished - EENT Eyes: Present: PERRL, EOM intact - Neck Neck: Present: supple, normal ROM - Respiratory Respiratory effort: normal Respiratory: bilateral: diminished, negative: rales, rhonchi, wheezing - Cardiovascular Rhythm: regular Heart Sounds: Present: S1 & S2 - Extremities Extremities: no ischemia, No edema - Abdominal General gastrointestinal: soft, non-tender, non-distended, normal bowel sounds - Integumentary Integumentary: Present: clear, warm - Psychiatric Psychiatric: appropriate mood/affect, cooperative - Neurologic Neurologic: CNII-XII intact, moves all extremities Results - Labs CBC & Chem 7: 09/05/21 07:35 09/04/21 06:11 Labs: Laboratory Last Values WBC 19.1 K/mm3 (4.5-11.0) H 09/04/21 06:11 RBC 2.05 M/mm3 (3.65-5.03) L 09/04/21 06:11 Hgb 6.3 gm/dl (11.8-15.2) L 09/04/21 06:11 Hct 19.1 % (35.5-45.6) L* 09/04/21 06:11 MCV 93 fl (84-94) 09/04/21 06:11 MCH 31 pg (28-32) 09/04/21 06:11 MCHC 33 % (32-34) 09/04/21 06:11 RDW 17.6 % (13.2-15.2) H 09/04/21 06:11 Plt Count 321 K/mm3 (140-440) 09/04/21 06:11 Lymph % (Auto) 22.6 % (13.4-35.0) 09/04/21 06:11 [place] % (Auto) 12.7 % (0.0-7.3) H 09/04/21 06:11 Eos % (Auto) 0.9 % (0.0-4.3) 09/04/21 06:11 Baso % (Auto) 0.2 % (0.0-1.8) 09/04/21 06:11 Lymph # (Auto) 4.3 K/mm3 (1.2-5.4) 09/04/21 06:11 [place] # (Auto) 2.4 K/mm3 (0.0-0.8) H 09/04/21 06:11 Eos # (Auto) 0.2 K/mm3 (0.0-0.4) 09/04/21 06:11 Baso # (Auto) 0.0 K/mm3 (0.0-0.1) 09/04/21 06:11 Seg Neutrophils % 63.6 % (40.0-70.0) 09/04/21 06:11 Seg Neutrophils # 12.2 K/mm3 (1.8-7.7) H 09/04/21 06:11 Percent Retic 3.56 % (0.78-2.58) H 09/03/21 15:57 Sodium 136 mmol/L (137-145) L 09/04/21 06:11 Potassium 4.2 mmol/L (3.6-5.0) 09/04/21 06:11 Chloride 105.8 mmol/L (98-107) 09/04/21 06:11 Carbon Dioxide 20 mmol/L (22-30) L 09/04/21 06:11 Anion Gap 14 mmol/L 09/04/21 06:11 BUN 18 mg/dL (9-20) 09/04/21 06:11 Creatinine 0.5 mg/dL (0.8-1.3) L 09/04/21 06:11 Estimated GFR > 60 ml/min 09/04/21 06:11 BUN/Creatinine Ratio 36 % 09/04/21 06:11 Glucose 104 mg/dL (75-100) H 09/04/21 06:11 Calcium 8.9 mg/dL (8.4-10.2) 09/04/21 06:11 Total Bilirubin 1.80 mg/dL (0.1-1.2) H 09/03/21 15:57 AST 113 units/L (5-40) H 09/03/21 15:57 ALT 119 units/L (7-56) H 09/03/21 15:57 Alkaline Phosphatase 209 units/L (35-129) H 09/03/21 15:57 Total Protein 7.2 g/dL (6.3-8.2) 09/03/21 15:57 Albumin 4.3 g/dL (3.9-5) 09/03/21 15:57 Albumin/Globulin Ratio 1.5 % 09/03/21 15:57 Lipase 24 units/L (13-60) 09/03/21 15:57 Urine Color Yellow (Yellow) 09/04/21 04:06 Urine Turbidity Clear (Clear) 09/04/21 04:06 Urine pH 6.0 (5.0-7.0) 09/04/21 04:06 Ur Specific [place] 1.005 (1.003-1.030) 09/04/21 04:06 Urine Protein 30 mg/dl mg/dL (Negative) 09/04/21 04:06 Urine Glucose (UA) Negative mg/dL (Negative) 09/04/21 04:06 Urine Ketones Negative mg/dL (Negative) 09/04/21 04:06 Urine Blood Negative (Negative) 09/04/21 04:06 Urine Nitrite Negative (Negative) 09/04/21 04:06 Urine Bilirubin Negative (Negative) 09/04/21 04:06 Urine Urobilinogen 0.2 mg/dL (<2.0) 09/04/21 04:06 Ur Leukocyte Esterase Negative (Negative) 09/04/21 04:06 Urine WBC (Auto) 1.0 /HPF (0.0-6.0) 09/04/21 04:06 Urine RBC (Auto) < 1.0 /HPF (0.0-6.0) 09/04/21 04:06 Blood Type A POSITIVE 09/04/21 14:00 Antibody Screen Negative 09/04/21 14:00 Crossmatch See Detail 09/04/21 14:00 [place]/IV: Voiding Method Toilet Active Medications - Current Medications Current Medications: Generic Name Dose Route Start Last Admin Trade Name Freq PRN Reason Stop Dose Admin Benztropine Mesylate 1 mg 09/04/21 10:00 09/04/21 21:44 Benztropine 1 Mg Tab PO 1 mg BID IKE Administration Chlorpromazine HCl 25 mg 09/04/21 10:00 09/04/21 11:58 Chlorpromazine 25 Mg Tab [facility] Diphenhydramine HCl 25 mg 09/03/21 23:32 09/04/21 02:55 Diphenhydramine 25 Mg Cap PO 25 mg Q6H PRN Administration Itching Famotidine 20 mg 09/04/21 10:00 09/04/21 21:45 Famotidine 20 Mg Tab PO 20 mg BID [facility] Administration Folic Acid 1 mg 09/04/21 10:00 09/04/21 11:57 Folic Acid 1 Mg Tab PO 1 mg QDAY [facility] Administration Furosemide 20 mg 09/04/21 10:00 09/04/21 11:55 Furosemide 20 Mg Tab PO 20 mg QAM [facility] Administration Hydromorphone HCl 0.25 mg 09/03/21 23:29 09/04/21 21:45 Hydromorphone 0.5 Mg/0.5 Ml Inj IV 0.25 mg Q3H PRN Administration Pain, Moderate (4-6) Hydromorphone HCl 1 mg 09/04/21 15:07 09/05/21 02:54 Hydromorphone 0.5 Mg/0.5 Ml Inj IV 1 mg Q4H PRN Administration Pain , Severe (7-10) Hydroxyurea 500 mg 09/05/21 10:00 Hydroxyurea 500 Mg Cap PO QAM [facility] Hydroxyzine Pamoate 25 mg 09/04/21 08:00 Hydroxyzine Pamoate 25 Mg Cap PO TID PRN Anxiety Ceftriaxone Sodium 2 gm in 100 mls @ 200 mls/hr 09/05/21 12:00 Rocephin/Ns 2 Gm/100 Ml IV Q24H [facility] Protocol [place] Carbonate 300 mg 09/04/21 10:00 09/04/21 11:58 [place] Carbonate 300 Mg Cap PO Not Given QAM [facility] Magnesium Hydroxide 30 ml 09/03/21 23:32 Magnesium Hydroxide (Mom) Oral Liqd Udc PO Q12H PRN constipation Metoprolol Tartrate 25 mg 09/04/21 08:00 09/04/21 16:47 Metoprolol Tartrate 25 Mg Tab PO 25 mg BID@0800,1700 [facility] Administration Ondansetron HCl 4 mg 09/03/21 23:29 Ondansetron 4 Mg/2 Ml Inj IV Q8H PRN Nausea And Vomiting Oxycodone HCl 5 mg 09/03/21 23:32 Oxycodone 5 Mg Tab PO Q6H PRN PAIN (4-6) Quetiapine Fumarate 600 mg 09/04/21 22:00 09/04/21 21:47 Quetiapine 200 Mg Tab PO Not Given QHS IKE Sodium Chloride 10 ml 09/04/21 10:00 09/04/21 21:45 Sodium Chloride 0.9% 10 Ml Flush Syringe IV 10 ml BID IKE Administration Sodium Chloride 10 ml 09/03/21 23:29 09/04/21 05:53 Sodium Chloride 0.9% 10 Ml Flush Syringe IV 10 ml PRN PRN Administration LINE FLUSH Nutrition/Malnutrition Assess - Dietary Evaluation Nutrition/Malnutrition Findings: Nutrition Notes Start: 09/04/21 10:49 Freq: Status: Active Protocol: Document 09/04/21 10:49 MATEO (Rec: 09/04/21 11:07 MATEO [id number]) Nutrition Notes Need for Assessment generated from: supervisor drying and softening,MST Initial or Follow up Assessment Other Pertinent Diagnosis Sickle Cell, Anemia, Leukocytosis, CHF, Migraine, Psychoaffective Disorder. Current Diet Cardiac Diet (since B 09/03). Labs/Tests 09/04: Na 136, CO2 20, Crea 0. 5, Glu 104. Pertinent Medications 09/04: Folic acid, others nutritionally unremarkable. Height 5 ft 8 in Weight 61.23 kg [place] Body Weight (kg) 70.00 BMI 20.5 Intake Prior to Admission Poor Weight change and time frame Pt states having loss, unintentionally, between 2 and 13 lb of body weight recently . Weight Status Appropriate Subjective/Other Information RD consult for risk of malnutrition assessment. Pt's PO intake of meals has been Fair (50%) but well tolerated, according to ADL notes. Pt is on Room Air, O2 saturation @ 95%, according to Physical Assessment History notes. Pt complains of abdominal pain and poor appetite for 2 days, according to Physical Assessment History notes. Pt states is experiencing a Sickle Cell crisis more painful than usual during the last 2 days, according to History & Physical notes. Percent of energy/protein needs met: Prescribed Cardiac Diet provides for energy/protein needs (2,230 Kcal/85 g) during LOS. Burn Absent Trauma Absent GI Symptoms Other Food Allergy No Skin Integrity/Comment Assessment WNL. Current % PO Fair (50-74%) Minimum of two criteria No physical signs of malnutrition Fluid Accumulation N/A Reduced [place] Strength N/A (non-severe) Protein-Calorie Malnutrition N\A #1 Nutrition Diagnosis No nutrition diagnosis at this time Is patient on ventilator? No Is Patient Ambulatory and/or Out of Bed Yes REE-([place]ambulatory/OOB) [ 1984.840 [id number]] Kcal/Kg value to use for calculation 30 Approximate Energy Requirements Using 1837 kcal/Kg Calculation Used for Recommendations Kcal/kg Additional Notes Protein: 0.8-1 g/Kg ABW; 49-61 g/day. Fluids: 1 ml/Kcal, or as per MD. Nutrition Intervention Change Diet Order: Continue Cardiac Diet. Follow-Up By: 09/11/21 Additional Comments Continue monitoring food tolerance, %PO intake of meals , and BM.
[2021-09-05 07:58] LABS: Hemoglobin 6.6 gm/dl (11.8-15.2); Mean Corpuscular HGB Conc 33 % (32-34); Mean Corpuscular Volume 90 fl (84-94); Platelet Count 379 K/mm3 (140-440); Red Blood Count 2.18 M/mm3 (3.65-5.03); Red Cell Distribution Width 17.1 % (13.2-15.2)
[2021-09-05 08:00] LABS: Hematocrit 19.7 % (35.5-45.6)
[2021-09-05 08:19] LABS: Alanine Aminotransferase 98 units/L (7-56); Blood Urea Nitrogen 15 mg/dL (9-20); Calcium 9.3 mg/dL (8.4-10.2); Hemolysis Index 4
[2021-09-05 08:22] LABS: BUN/Creatinine Ratio 30
[2021-09-05] MEDS: METOPROLOL TARTRATE 25 MG TAB PO SCH ×2 (09:17→18:53)
[2021-09-05] MEDS ORDERED: cefTRIAXone/NS 2 GM/100 ML 2 GM/100 ML BAG IV SCH (12:00)
[2021-09-05] MEDS: HYDROXYUREA 500 MG CAP PO SCH (12:16)
[2021-09-05] MEDS: FOLIC ACID 1 MG TAB PO SCH (12:16)
[2021-09-05] MEDS: FAMOTIDINE 20 MG TAB PO SCH ×2 (12:16→21:37)
[2021-09-05] MEDS: FUROSEMIDE 20 MG TAB PO SCH (12:16)
[2021-09-05] MEDS: BENZTROPINE 1 MG TAB PO SCH ×2 (12:17→23:31)
[2021-09-05] MEDS: LITHIUM CARBONATE 300 MG CAP PO SCH (12:17)
[2021-09-05] MEDS: chlorproMAZINE 25 MG TAB PO SCH ×2 (12:17→12:26)
[2021-09-05] MEDS: SODIUM CHLORIDE 0.9% 500 ML 500 ML IV SCH (13:39)
[2021-09-05] MEDS: QUEtiapine 200 MG TAB PO SCH ×2 (21:37)
[2021-09-05] MEDS: HYDROmorphone 1 MG/1 ML INJ IV PRN (21:38)
[2021-09-06] MEDS: HYDROmorphone 1 MG/1 ML INJ IV PRN ×3 (05:36→14:00)
[2021-09-06 05:46] LABS: Hematocrit 25.6 % (35.5-45.6); Hemoglobin 8.5 gm/dl (11.8-15.2); Mean Corpuscular HGB Conc 33 % (32-34); Mean Corpuscular Volume 88 fl (84-94); Platelet Count 387 K/mm3 (140-440); Red Blood Count 2.91 M/mm3 (3.65-5.03)
[2021-09-06 06:02] LABS: Blood Urea Nitrogen 19 mg/dL (9-20); Calcium 9.3 mg/dL (8.4-10.2); Hemolysis Index 12
[2021-09-06 06:05] LABS: BUN/Creatinine Ratio 32
[2021-09-06 07:15] LABS: Total Cells Counted 100
[2021-09-06 07:16] LABS: Basophils % (Manual) 0 % (0.0-1.8); Hypochromasia 1+; Platelet Estimate Consistent w Auto; Target Cells Rare
--- NOTE | 2021-09-06 08:28 | Discharge Summary ---
Providers - Providers Date of Admission: 09/04/21 14:47 Date of discharge: 09/06/21 Attending physician: BOOM BOWEN Primary care physician: NEREIDA CARTER Hospitalization Condition: Fair Hospital course: -- Sickle cell disease with crisis Continue IV fluids, pain medications blood transfusion Dilaudid 0.5 mg IV ,Folic acid 1 mg p.o. daily. Hydroxyurea 500 mg p.o. every morning. Recheck CBC in the morning --Sickle cell anemia ;Hb 6.7-6.3-6.6 today Unable to transfuse yesterday due to [place]/blood bank delays Check with blood bank nurse, will send 2 units of blood to the floor today Patient received 3 units of PRBC during recent admission few days ago Will transfuse 2 units of PRBC today, closely monitor H&H Transfuse additional PRBC if needed Discussed with blood bank, xi --diastolic CHF Stable. We will continue the home medication. Avoid fluid overload. Maintain input output. Daily weight 1 dose of Lasix after each transfusion --Cirrhosis liver; stable Patient reports that he was seen in [place], planning liver transplantation Advised to follow with [place] acupuncturist for further evaluation and management --Chronic leukocytosis/trending down WBC 19.1 -15.0, monitor WBC Rocephin 2 g IV daily. We will do the blood culture. --Schizoaffective disorder Continue [place] 300 mg p.o. every morning and 600 mg p.o. nightly. Outpatient follow-up with psych --Severe /anemia Patient has sickle cell disease with crisis. Folic acid 1 mg p.o. daily. Recheck CBC in the morning if needed will transfuse the patient -Hyponatremia/resolved --DVT prophylaxis SCD for DVT prophylaxis. Pepcid 20 mg p.o. twice daily for GI prophylaxis. Patient is a full code Disposition: 01 HOME / SELF CARE / HOMELESS Final Discharge Diagnosis (Prints w/discharge instructions): Sickle cell disease with crisis. Severe sickle cell anemia received 2 units PRBC transfusion. Diastolic congestive heart failure. Cirrhosis liver. Chronic leukocytosis. History of schizoaffective disorder. Severe anemia. Hyponatremia resolved Exam - Constitutional Vitals: Temp Pulse Resp BP Pulse Ox 98.6 F 67 17 105/63 100 09/06/21 04:59 09/06/21 04:59 09/06/21 06:06 09/06/21 05:32 09/06/21 05:32 Plan Activity: advance as tolerated Diet: regular Additional Instructions: Advised to see his private mental hygiene consultant/sickle cell physician in 1 week or as needed. Advised to follow with acupuncturist/GI at [facility] per schedule. If you have worsening symptoms contact MD or go to the nearest emergency room as needed. Strongly advised to comply with medications, diet, follow-up visits per schedule Follow up with: NEREIDA CARTER MD [Primary Care Provider] - 3-5 Days JACK DAVIS MD [Staff Physician] - 7 Days Prescriptions: oxyCODONE /ACETAMINOPHEN [Percocet 5/325 mg] 1 tab PO Q8H PRN #15 tablet PRN Reason: Pain, Moderate (4-6)
[2021-09-06] MEDS: METOPROLOL TARTRATE 25 MG TAB PO SCH (08:48)
[2021-09-06] MEDS: SODIUM CHLORIDE 0.9% 500 ML 500 ML IV SCH (10:31)
[2021-09-06] MEDS: FAMOTIDINE 20 MG TAB PO SCH (10:31)
[2021-09-06] MEDS: BENZTROPINE 1 MG TAB PO SCH (10:34)
[2021-09-06] MEDS: LITHIUM CARBONATE 300 MG CAP PO SCH (10:34)
[2021-09-06] MEDS: chlorproMAZINE 25 MG TAB PO SCH (10:35)
[2021-09-06] MEDS: HYDROXYUREA 500 MG CAP PO SCH (10:39)
[2021-09-06] MEDS ORDERED: FUROSEMIDE 40 MG/4 ML INJ IV ONE (11:00)
[2021-09-06] MEDS: FOLIC ACID 1 MG TAB PO SCH (11:14)
[2021-09-06 12:27] VITALS: BP 108/63
[2021-09-06] MEDS: FUROSEMIDE 20 MG TAB PO SCH (14:00)
== END 2021-09-06 14:00 | disposition home or self-care (01) | DRG 812 ==
LOC: ED 11:39 → 3A 23:29 → OBSVTOIN 09-04 14:47
PROVIDERS: ADMIT Hospitalist; ATTEND Internal Medicine
PROC: 30233N1 Transfusion of Nonautologous Red Blood Cells into Peripheral Vein, Percutaneous Approach (ICD-10-PCS; principal; 2021-09-05)
DX: D57.00 Hb-SS disease with crisis, unspecified (principal); E87.1 Hypo-osmolality and hyponatremia; I50.30 Unspecified diastolic (congestive) heart failure; D72.829 Elevated white blood cell count, unspecified; I11.0 Hypertensive heart disease with heart failure; F25.9 Schizoaffective disorder, unspecified; G43.909 Migraine, unspecified, not intractable, without status migrainosus; F17.200 Nicotine dependence, unspecified, uncomplicated; K74.60 Unspecified cirrhosis of liver; Z88.6 Allergy status to analgesic agent; Z82.49 Family history of ischemic heart disease and other diseases of the circulatory system; Z88.5 Allergy status to narcotic agent; Z88.8 Allergy status to other drugs, medicaments and biological substances
CPT/HCPCS: 36415; 74177; 80048; 80053; 81001; 83690; 85007; 85025; 85027; 85045; 85660; 86850; 86900; 86901; 86920; 86922; 94640; G0378; J3490; J0330; J0696; J1170; J1200; J1940; J2405; J7030; J7040; P9016; Q0161; Q9967